=== PATIENT | male | born 1980 | race African-American/Black ===

== ENCOUNTER 2022-07-16 16:42 | Emergency (ER) | payer SELFPAY ==
[2022-07-16 16:54] VITALS: BP 147/84; PULSE 90; RESP 16; TEMP 37.7; O2SAT 99
--- NOTE | 2022-07-16 17:10 | ED.DENTAL ---
HPI - Dental/Oral General Chief complaint: Dental/Oral Stated complaint: Dental Pain,Fever Time Seen by Provider: 07/16/22 17:11 Source: patient and RN notes reviewed Mode of arrival: ambulatory Limitations: no limitations History of Present Illness HPI Narrative: 41-year-old male presents to the [facility] with complaints of dental pain and a fever. Reports loss of tooth today. Pain to the left lower molars. Surrounding erythema. Very poor dentition. Related Data Allergies Allergy/AdvReac Type Severity Reaction Status Date / Time No Known Allergies Allergy Verified 07/16/22 17:14 Review of Systems Review of Systems: All systems reviewed & are unremarkable except as noted in HPI and below Constitutional: Constitutional: Reports no additional constitutional complaints, Denies chills and Denies fever(s) Eyes: Eyes: Reports no additional eye complaints ENT: Reports as per HPI (Dental pain) Cardiovascular: Cardiovascular: Reports no additional cardiovascular complaints Respiratory: Respiratory: Reports no additional respiratory complaints Gastrointestinal: Gastrointestinal: Reports no additional gastrointestinal complaints Musculoskeletal: Musculoskeletal: Reports no additional musculoskeletal complaints Integumentary/Breasts: Skin/Breast: Reports system reviewed and no additional complaints, except as docu Neurologic: Reports system reviewed and no additional complaints, except as documented Psychiatric: Psychiatric: Reports no additional psychiatric complaints Allergic/Immunologic: Allergic/Immunologic: Reports no additional allergic/immunologic complaints PMFSH Comments At the time of my signature, I reviewed and agree with the nursing past medical, surgical, social, and family history. There is no relevant family history pertinent to the patient complaint. Exam Const: General: healthy appearing, no acute distress and alert Nutritional Appearance: well nourished Orientation/consciousness: patient oriented x3 Limitations: no limitations HENMT: Head: normal to inspection Ears: external ears normal General nose exam: Normal external nose present and Normal nares present Teeth and gingiva: abnormal tooth and associated gingiva, caries and poor dentition Throat: posterior oropharynx normal Eyes: General: appearance normal, both eyes and all related structures Pupils: Equal, round and reactive pupils present Neck: Neck: normal visual inspection, no lymphadenopathy and no meningeal signs Chest: Chest palpation & inspection: normal inspection of the chest Resp: Effort & Inspection: normal respiratory effort and no use of accessory muscles Auscultation: clear to auscultation bilaterally, no crackles, no rales, no rhonchi and no wheezes Cardio: Rate: regular rate Rhythm: regular rhythm Back/Spine/Pelvis: Cervical Spine: normal cervical lordosis Thoracic/Lumbar Spine: thoracic and lumbar spine normal to inspection Skin: General skin exam: normal color Rashes: no rashes Wounds: no wounds Neuro: General: patient oriented x3, moves all extremities, no meningeal signs and no focal motor deficits Cranial nerves: Yes Equal, round and reactive pupils present Speech: normal speech Gait exam (Neuro): Normal gait present Extrem: General: normal to inspection, full ROM and capillary refill normal Psych: Appearance: grossly normal and well kempt Mental Status: mental status grossly normal Affect: normal affect Attitude: cooperative Thought content: Yes Normal thought content present Course Course Emergency Course: Discharge instructions reviewed with patient, as well as provided in writing per nursing staff. The instructions also include specific and strict return/GO TO THE ER as well as f/u information. All questions have been answered, and the patient deny any further questions with discharge and discharge plan. Some parts of this dictation were generated by voice recognition software and may contain
== END 2022-07-16 17:19 | disposition home or self-care (01) ==
PROVIDERS: Emergency Provider Nurse Practitioner
DX: K02.9 Dental caries, unspecified (principal); K04.7 Periapical abscess without sinus; I10 Essential (primary) hypertension
CPT/HCPCS: 99203; G0463

== ENCOUNTER 2022-10-16 11:45 | Emergency (ER) | payer OTHER, SELFPAY ==
[2022-10-16 11:52] VITALS: BP 146/94; PULSE 86; RESP 16; TEMP 36.4; O2SAT 99
--- NOTE | 2022-10-16 13:31 | ED.GENADULT ---
HPI - General Adult General Chief complaint: Medical Clearance Stated complaint: flu like sx Time Seen by Provider: 10/16/22 13:30 Source: patient, RN notes reviewed and old records reviewed Mode of arrival: ambulatory Limitations: no limitations History of Present Illness HPI narrative: 40-year-old male presents to [facility] with complaints of being ill starting on the for 3 days with flu-like symptoms of a headache, vomiting, and chills, no fevers reported.. Patient here today for clearance to return to work. Patient denies any fevers today or any nausea or vomiting, states that he went to work and they made him leave till he obtains clearance to return. MD complaint: 3 days of illness with headache, vomiting and chills with no known fevers Onset (ago): day(s) (10/13/2022) Treatments prior to arrival: none Related Data Allergies Allergy/AdvReac Type Severity Reaction Status Date / Time No Known Allergies Allergy Verified 10/16/22 12:35 Review of Systems Review of Systems: CONSTITUTIONAL: Denies present malaise, chills, sweats, or fever. EYES: Denies visual changes, redness, or discharge. ENT: Denies rhinorrhea, congestion, sinus pain, otalgia and sore throat. CARDIOVASCULAR: Denies chest pain, palpitations, or edema. RESPIRATORY: Denies cough.? Denies dyspnea. GASTROINTESTINAL: Denies abdominal pain, nausea, vomiting, diarrhea SKIN: Denies rash or itching. MUSCULOSKELETAL: Denies myalgia. NEUROLOGIC: Denies present headache. states is resolved All systems reviewed & are unremarkable except as noted in HPI and below PMFSH Past Medical History Medical History Hypertension Social History Social History (Updated 10/20/22 @ 11:12 by Cynthia Sims NP) Smoking status: Never smoker Substance use: former Substance use type: former substance user Comments At time of signature, agree with nursing past medical, surgical, social and family history. There is no relevant family history pertinent to the presenting complaint Exam Narrative: GENERAL: Well-appearing, well-nourished, and in no acute distress. HEAD: Normocephalic EYES: PERRLA, conjunctivae clear ENT: Nares clear, turbinates edematous and erythematous, clear discharge. Mucous membranes moist. TM pearly huynh with dull light reflex bilaterally; no tragal tenderness. Oropharynx erythematous without lesions. Tonsils not enlarged and without exudate, no drooling, no hoarseness, no trismus, uvula midline. NECK: Supple. No lymphadenopathy CHEST: Clear to auscultation, breath sounds equal. No wheezing, rhonchi, rales, or stridor. No respiratory distress, speaks in full sentences.SAO2 99% on room air HEART: Regular rate and rhythm. No murmur heard. SKIN: Warm, dry, no rash. NEURO: Alert and oriented x3. PSYCH: Normal mood and affect Course Course Emergency Course: Patient is aware of diagnosis, understands and agrees to treatment plan.? Anticipatory guidance given.? Patient agrees to follow-up as directed and is aware of reasons to seek care at the emergency department. Portions of this record may have been created with voice recognition software Level of Care: Express Care Visit Vital Signs Vital signs: Vital Signs Temperature 36.4 C 10/16/22 11:52 Pulse Rate 86 10/16/22 11:52 Respiratory Rate 16 10/16/22 11:52 Blood Pressure 146/94 H 10/16/22 11:52 Pulse Oximetry 99 10/16/22 11:52 Oxygen Delivery Room Air 10/16/22 11:52 Temperature 36.4 C 10/16/22 11:52 Pulse Rate 86 10/16/22 11:52 Respiratory Rate 16 10/16/22 11:52 Blood Pressure 146/94 H 10/16/22 11:52 Pulse Oximetry 99 10/16/22 11:52 Oxygen Delivery Room Air 10/16/22 11:52 Reviewed Medical Decision Making Differential Diagnosis Differential Diagnosis: URI, influenza, vomiting, headache, medical clearance Medical Records Medical records reviewed: Yes I review
== END 2022-10-16 14:15 | disposition home or self-care (01) ==
PROVIDERS: Emergency Provider Registered Nurse
DX: B34.9 Viral infection, unspecified (principal); Z02.79 Encounter for issue of other medical certificate; Z20.822 Contact with and (suspected) exposure to COVID-19; I10 Essential (primary) hypertension
CPT/HCPCS: 87426; 87804; 99213; C9803; G0463

== ENCOUNTER 2023-03-10 13:22 | Emergency (ER) | payer BC, SELFPAY ==
[2023-03-10 13:33] VITALS: BP 146/93; PULSE 73; RESP 14; TEMP 36.6; O2SAT 100
--- NOTE | 2023-03-10 13:48 | ED.GENADULT ---
HPI - General Adult General Chief complaint: Recheck/Abnormal Lab/Rx Stated complaint: High B/P Time Seen by Provider: 03/10/23 13:48 Source: patient Mode of arrival: ambulatory Limitations: no limitations History of Present Illness HPI narrative: 41-year-old male presents with complaint of high blood pressure today. Reports that he was at his dentist office to have a tooth pulled and they checked his blood pressure twice and told them that it was too high. Patient reports history of hypertension. Has not seen his primary care physician in over year. His last prescription was canceled at [facility] due to not going to his primary care appointment. Patient does not know the names of the medications that he is supposed to be taking. He denies chest pain and shortness of breath. No headaches. All systems reviewed and negative except as noted above. Related Data Allergies Allergy/AdvReac Type Severity Reaction Status Date / Time No Known Allergies Allergy Verified 03/10/23 13:32 Review of Systems Review of Systems: CONSTITUTIONAL: Denies fever, chills, or sweats. EYES: Denies visual changes, redness, or discharge. ENT: Denies rhinorrhea, congestion, sore throat, or otalgia. CARDIOVASCULAR: Denies chest pain, palpitations, or edema. RESPIRATORY: Denies cough or dyspnea. GASTROINTESTINAL: Denies abdominal pain, nausea, vomiting, or diarrhea. GENITOURINARY: Denies dysuria or hematuria. SKIN: Denies rash or itching. MUSCULOSKELETAL: Denies back pain, joint pain, or myalgia. NEUROLOGIC: Denies headache, numbness, or weakness. PSYCHIATRIC: Denies anxiety or depression. All other systems reviewed are negative, except as documented in HPI. PMFSH Past Medical History Medical History Hypertension Social History Social History (Updated 10/20/22 @ 11:12 by Cynthia Sims NP) Smoking status: Never smoker Substance use: former Substance use type: former substance user Comments At time of signature, agree with nursing past medical, surgical, social and family history. There is no relevant family history pertinent to the presenting complaint. Exam Narrative: GENERAL: This is a well-nourished, well-developed patient, in no apparent distress. HEAD: normocephalic, atraumatic. EYES: PERRL. Sclera clear/white. Vision is grossly intact. EARS: External ears normal NOSE: External nose normal NECK: Neck supple, non-tender without lymphadenopathy, masses or thyromegaly. CARDIOVASCULAR: Regular rate and rhythm without murmurs, gallops, or rubs. RESPIRATORY: Clear to auscultation. Breath sounds equal bilaterally. No wheezes, rales, or rhonchi. SKIN: warm, Dry, intact with no suspicious lesions or rash, good texture and turgor. NEURO: awake, alert, and oriented to person, place and time. There were no obvious focal neurologic abnormalities. EXTREMITIES: No joint tenderness, effusion, or edema noted. Course Course Level of Care: Express Care Visit Vital Signs Vital signs: Vital Signs Temperature 36.6 C 03/10/23 13:33 Pulse Rate 73 03/10/23 13:33 Respiratory Rate 14 03/10/23 13:33 Blood Pressure 146/93 H 03/10/23 13:33 Pulse Oximetry 100 03/10/23 13:33 Oxygen Delivery Room Air 03/10/23 13:33 Temperature 36.6 C 03/10/23 13:33 Pulse Rate 73 03/10/23 13:33 Respiratory Rate 14 03/10/23 13:33 Blood Pressure 146/93 H 03/10/23 13:33 Pulse Oximetry 100 03/10/23 13:33 Oxygen Delivery Room Air 03/10/23 13:33 Reviewed Medical Decision Making MDM Narrative Medical decision making narrative: called [facility] pharmacy today to confirm patient's medications. patient last had medications filled December of 2021. He tried to have medications filled January of 2022 but they were canceled by his primary care physician due to not going to an appointment. Patient does not have a current primary care physician. He states that he
== END 2023-03-10 14:03 | disposition home or self-care (01) ==
PROVIDERS: Emergency Provider Nurse Practitioner Family
DX: I10 Essential (primary) hypertension (principal)
CPT/HCPCS: 99211; G0463

== ENCOUNTER 2024-08-27 12:13 | Emergency (ER) | payer MEDICAID, SELFPAY ==
[2024-08-27 12:22] VITALS: BP 176/96; PULSE 78; RESP 18; TEMP 36.6; O2SAT 100
[2024-08-27 12:23] VITALS: BP 176/96; PULSE 78; RESP 18; TEMP 36.6; O2SAT 100
--- NOTE | 2024-08-27 13:11 | ED.GENADULT ---
HPI - General Adult General Chief complaint: Unspecified Stated complaint: High B/P Time Seen by Provider: 08/27/24 13:12 Source: patient, RN notes reviewed and old records reviewed Mode of arrival: ambulatory Limitations: no limitations History of Present Illness HPI narrative: 42-year-old male presents to the [facility] requesting refills on his blood pressure medication. States that he was at work, was not able to past [employer] work physical because of his blood pressure. Patient has not taken his blood pressure medication since February of 2023. Reports that he does have an appointment with a new primary care provider on the . Patient denies any chest pain, shortness of breath, blurry vision, headaches. Related Data Allergies Allergy/AdvReac Type Severity Reaction Status Date / Time No Known Allergies Allergy Verified 08/27/24 12:23 Review of Systems Review of Systems: All systems reviewed & are unremarkable except as noted in HPI and below Constitutional: Constitutional: Reports no additional constitutional complaints Eyes: Eyes: Reports no additional eye complaints ENT: Reports system reviewed and no additional complaints, except as documented Cardiovascular: Cardiovascular: Reports no additional cardiovascular complaints, Denies chest pain and Denies dyspnea Respiratory: Respiratory: Reports no additional respiratory complaints, Denies chest congestion, Denies cough and Denies dyspnea Gastrointestinal: Gastrointestinal: Reports no additional gastrointestinal complaints, Denies abdominal pain, Denies nausea and Denies vomiting Musculoskeletal: Musculoskeletal: Reports no additional musculoskeletal complaints Integumentary/Breasts: Skin/Breast: Reports system reviewed and no additional complaints, except as docu Neurologic: Reports system reviewed and no additional complaints, except as documented Psychiatric: Psychiatric: Reports no additional psychiatric complaints Allergic/Immunologic: Allergic/Immunologic: Reports no additional allergic/immunologic complaints [facility] Past Medical History Medical History Hypertension Social History Social History Smoking status: Never smoker Substance use: former Substance use type: former substance user Comments At the time of my signature, I reviewed and agree with the nursing past medical, surgical, social, and family history. There is no relevant family history pertinent to the patient complaint. Exam Const: General: cooperative, healthy appearing, comfortable, no acute distress, well developed, alert and well nourished Nutritional Appearance: well nourished Orientation/consciousness: patient oriented x3 Limitations: no limitations HENMT: Head: normal to inspection Ears: hearing grossly normal bilaterally and external ears normal Face/Nose/Sinus: Normal external nose present, normal facial exam and face symmetric Face and sinus: normal facial exam and face symmetric Eyes: General: appearance normal, both eyes and all related structures Alignment and Position: alignment normal Periorbital: periorbital findings normal Neck: Neck: normal visual inspection, full ROM, no lymphadenopathy and no meningeal signs Chest: Chest palpation & inspection: normal inspection of the chest Resp: Effort & Inspection: normal respiratory effort and able to speak in complete sentences Cardio: Rate: regular rate Skin: General skin exam: normal color and no rashes or lesions noted Lesions: no lesions Rashes: no rashes Trauma: no lacerations or abrasions Wounds: no wounds Neuro: General: patient oriented x3, gait normal, tone normal, moves all extremities and no meningeal signs Cognition (Neuro): normal cognition Speech: normal speech Gait exam (Neuro): Normal gait present Extrem: General: normal to inspection, full ROM, capillary refill normal and normal gait Ps
== END 2024-08-27 13:25 | disposition home or self-care (01) ==
PROVIDERS: Emergency Provider Nurse Practitioner
DX: I10 Essential (primary) hypertension (principal)
CPT/HCPCS: 99211; G0463

== ENCOUNTER 2024-11-03 17:34 | Emergency (ER) | payer OTHER, SELFPAY ==
[2024-11-03 17:45] VITALS: BP 135/90; PULSE 82; RESP 16; TEMP 36.4; O2SAT 99
--- NOTE | 2024-11-03 17:47 | ED_ITS ---
HPI - Dental/Oral General Chief complaint: Dental/Oral Stated complaint: right side tooth pain Time Seen by Provider: 11/03/24 17:47 Source: patient Mode of arrival: ambulatory Limitations: no limitations History of Present Illness HPI Narrative: 42 yo M presents with with R lower dental pain for 1 days. Has dentist but has not made appt. afebrile. All systems reviewed and negative except as noted above. Related Data Allergies Allergy/AdvReac Type Severity Reaction Status Date / Time No Known Allergies Allergy Verified 11/03/24 17:46 Review of Systems Review of Systems: CONSTITUTIONAL: Denies fever, chills, or sweats. EYES: Denies visual changes, redness, or discharge. ENT: Denies rhinorrhea, congestion, sore throat, or otalgia. Reports right lower dental pain. CARDIOVASCULAR: Denies chest pain, palpitations, or edema. RESPIRATORY: Denies cough or dyspnea. GASTROINTESTINAL: Denies abdominal pain, nausea, vomiting, or diarrhea. GENITOURINARY: Denies dysuria or hematuria. SKIN: Denies rash or itching. MUSCULOSKELETAL: Denies back pain, joint pain, or myalgia. NEUROLOGIC: Denies headache, numbness, or weakness. PSYCHIATRIC: Denies anxiety or depression. All other systems reviewed are negative, except as documented in HPI. [facility] Past Medical History Medical History Hypertension Social History Social History Smoking status: Never smoker Substance use: former Substance use type: former substance user Comments At time of signature, agree with nursing past medical, surgical, social and family history. There is no relevant family history pertinent to the presenting complaint. Exam Narrative: GENERAL: This is a well-nourished, well-developed patient, in no apparent distress. HEAD: normocephalic, atraumatic. EYES: PERRL. Sclera clear/white. Vision is grossly intact. EARS: External ears normal NOSE: External nose normal MOUTH: tooth #32 decayed and broken. no erythema or fluctuance concerning for abscess NECK: Neck supple, non-tender without lymphadenopathy, masses or thyromegaly. CARDIOVASCULAR: Regular rate and rhythm without murmurs, gallops, or rubs. RESPIRATORY: Clear to auscultation. Breath sounds equal bilaterally. No wheezes, rales, or rhonchi. SKIN: warm, Dry, intact with no suspicious lesions or rash, good texture and turgor. NEURO: awake, alert, and oriented to person, place and time. There were no obvious focal neurologic abnormalities. EXTREMITIES: No joint tenderness, effusion, or edema noted. Course Course Level of Care: Express Care Visit Vital Signs Vital signs: Vital Signs Temperature 36.4 C 11/03/24 17:45 Pulse Rate 82 11/03/24 17:45 Respiratory Rate 16 11/03/24 17:45 Blood Pressure 135/90 11/03/24 17:45 Pulse Oximetry 99 11/03/24 17:45 Oxygen Delivery Room Air 11/03/24 17:45 Temperature 36.4 C 11/03/24 17:45 Pulse Rate 82 11/03/24 17:45 Respiratory Rate 16 11/03/24 17:45 Blood Pressure 135/90 11/03/24 17:45 Pulse Oximetry 99 11/03/24 17:45 Oxygen Delivery Room Air 11/03/24 17:45 Reviewed MDM - Dental/Oral MDM Narrative Medical decision making narrative: Patient is aware of diagnosis, understands and agrees to treatment plan. Anticipatory guidance given. Patient agrees to follow-up as directed and is aware of reasons to seek care at the emergency department. Portions of this record may have been created with voice recognition software Differential Diagnosis Differential diagnosis: Likely dental caries, toothache, dental abscess and fracture of tooth Discharge Plan Discharge Clinical Impression: Pain, dental Patient Disposition: Home, Self-Care Condition: Stable Instructions: Antibiotic Form, Toothache (ED) Additional Instructions: take antibiotic as prescribed until gone. Take ibuprofen every 8 hours as needed for pain. Follow-up with dentist at next available appointment. Patient Language: German Prescriptions: New ibuprofen 800 mg tablet 800 mg PO TID PRN (Reason: pain) Qty: 30 0RF amoxicillin 875 mg tablet 875 mg PO Q12H 10 Days Qty: 20 0RF No Action amlodipine 5 mg tablet 5 mg PO DAILY 30 Days Qty: 30 0RF losartan 100 mg tablet 100 mg PO DAILY 30 Days Qty: 30 0RF Follow-up/Referrals: Heriberto,Irma Iyer NP [Primary Care Provider] - Stand Alone Forms: Work/School Release IP Time of Disposition: 17:51
[2024-11-03] MEDS: IBUPROFEN 400 MG TABLET 800 MG PO (17:53)
== END 2024-11-03 17:59 | disposition home or self-care (01) ==
PROVIDERS: Emergency Provider Nurse Practitioner Family; PCP Nurse Practitioner Family
DX: K08.89 Other specified disorders of teeth and supporting structures (principal); I10 Essential (primary) hypertension
CPT/HCPCS: 99213; A9270; G0463

== ENCOUNTER 2025-02-07 12:45 | Outpatient (CLI) | payer OTHER, SELFPAY ==
--- OUTSIDE RECORDS SUMMARY | 2025-02-07 14:30 | XMS_ITS | Clinical Summary ---
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 This disclosure is being madepursuant to the Care Everywhere program and may not contain all information available regarding this patient. Last updated [employer] Allergies No known active allergies Medications * Be aware that medications may not be up to date on this document. Alwaysverify current medications with the patient. Medication Sig Dispensed Refills Start Date End Date Status traMADol (ULTRAM) 50 MG tablet Take 1 Tab by mouth every 6 hours as needed for Pain 20 Tab 0 09/22/2015 Active Social History Tobacco Use Types Packs/Day Years Used Date Smoking Tobacco: Every Day Cigarettes Alcohol Use Standard Drinks/Week Comments No 0 (1 standard drink = 0.6 oz pur e alcohol) Sex and Gender Information Value Date Recorded Sex Assigned at Not on file Gender Identity Not on file Sexual Orientation Not on file Last Filed Vital Signs Vital Sign Reading Time Taken Comments Blood Pressure 145/90 08/04/2016 7:35 AM CDT Pulse 78 08/04/2016 7:35 AM CDT Temperature 36.9 C (98.4 F) 08/04/2016 7:35 AM CDT Respiratory Rate 16 08/04/2016 7:35 AM CDT Oxygen Saturation 98% 08/04/2016 7:35 AM CDT Inhaled Oxygen Concentration - - Weight 77.1 kg (170 lb) 08/04/2016 7:35 AM CDT Height 167.6 cm (5' 5.98 ) 08/04/2016 7:35 AM CD T Body Mass Index 27.45 08/04/2016 7:35 AM CDT Plan of Treatment Health Maintenance Due Date Last Done Comments LIPID TESTING 11/16/1982 HIV SCREENING 11/16/1997 HEPATITIS C SCREENING 11/11/2000 DTAP/TDAP/TD VACCINES (1 - Tdap) 11/16/2001 HEPATITIS B VACCINE (1 of 3 - 19+ 3-dose series) 11/16/2001 COVID-19 VACCINE ( - 2023-2 5 season) 2024 INFLUENZA VACCINE (#1) 2024 DEPRESSION SCREENING 11/17/2024 ZOSTER VACCINE (1 of 2) 11/16/2032 HIB VACCINE Aged Out No longer eligi ble based on patient's age to complete this topic HPV VACCINE Aged Out No longer eligi ble based on patient's age to complete this topic MENINGOCOCCAL (Group B) VACC INE SHARED DECISION-MAKING Aged Out No longer eligibl e based on patient's age to complete this topic MENINGOCOCCAL GROUPS A/C/Y/W VACCINE Aged Out No longer eligible b ased on patient's age to complete this topic PNEUMOCOCCAL VACCINE Aged Out No long er eligible based on patient's age to complete this topic
--- OUTSIDE RECORDS SUMMARY | 2025-02-07 14:30 | XMS_ITS | CONTINUITY OF CARE DOCUMENT ---
Author Name eros cooney Address Unknown Organization [facility] Office Address [address] [facility] [address] [place] [address] Phone [phone] Care Team Providers Care Supplier Quality Engineer Name Role Phone Dandre GOLDEN, Jerod Dwyer Unavailable Heriberto SEVILLA, Irma Unavailable [phone] PROBLEMS Condition Status Date Provider Notes Tobacco abuse active Jerod Amos MD Hypertension active Jerod Amos MD G E R D active Jerod Amos MD Cardiovascular Condition Screening active S gertrude Amos MD ENCOUNTERS Date Type Provider Location Encounter Diag nosis - In-person encounter Office Visit Jerod Amos MD [facility] Tobacco abuseHypertensionG E R DCardiovascular Condition Screening VITAL SIGNS Date Observation Value Provider Body Mass Index (Ratio) 31.15 kg/m2 Ren Amos MD blood pressure, diastolic 82 mm[Hg] Chioma Marquez blood pressure, systolic 128 mm[Hg] Courtney Marquez oxygen saturation, oximetry 99 % Jo Marquez pulse rate 92 /min Jo Marquez respiratory rate E&M 12 /min Jo Marquez weight E&M 193 [lb_av] Jo Marquez height E&M 66 [in_i] Jo Marquez blood pressure, cuff size regular An alex Marquez ALLERGIES No Known Drug Allergies HISTORY OF MEDICATION USE Medication Status Instructions Dates Provider Indications Com ments losartan 100 mg tablet active TAKE 1 TA BLET BY MOUTH EVERY DAY Jo Marquez amlodipine 10 mg tablet active Take 1 t ablet by mouth once a day Jo Marquez omeprazole active Jo Marquez hydrochlorothiazide active TAKE 1 CAPSU LE BY MOUTH EVERY DAY Jo Marquez INSURANCE PROVIDERS Payer name Policy type / Coverage type Luis Armando red green party ID [place] [employer] Medicaid [id number] ADVANCE DIRECTIVES Name Date DISCUSSED - NO DECISION MADE TREATMENT PLAN Date Name Performer Cardiology:Unknown l ipids r ecommend blood work Jerod Amos MD Cardiology:on multip le BP med Rx. Bp well controlled in office. Dietary Na intake is watched W ill arrange for echo to be done to evaluate for LVH His updated medication list for this problem includes: Losartan 100 Mg Tablet (Losartan) ..... Take 1 tablet by mouth every day Amlodipine 10 Mg Tablet (Amlodipine) ..... Take 1 tablet by mouth once a day Jerod Amos MD Cardiology:The Patie nt was reencouraged to stop smoking. D eclines cessation aids Jerod Amos MD Date Name TSH, free T4, total T3 HEMOGLOBIN A1c LIPID PANEL COMPREHENSIVE METABO LIC PANEL, W/EGFR EKG Complete Echo
--- OUTSIDE RECORDS SUMMARY | 2025-02-07 14:30 | XMS_ITS | Referral Summary ---
Author Organization [facility] Address [address] [place] [address] Care Team Providers Care Asphalt Mixer Name Role Phone Irma Louis NP Primary Care Provider Encounters Date Type Department Care Team Description 12/01/2024 10:45 AM MANAGER MEDICAL DEVICE Lab [facility] Lab [address] [place] [address] 11/14/2024 6:54 PM MANAGER MEDICAL DEVICE - 11/14/2024 10:24 PM [facility] Emergency [address] [address] Adalid Edwards MD Hyperglycemia due to diabetes mellitus (HCC) (Primary Dx) Discharge Disposition: Discharge to home or self care from Last 3 Months Allergies No known active allergies Medications metFORMIN (GLUCOPHAGE) 500 mg tablet Take 1 tablet (500 mg total) by mouth 2 (two) times a day with meals 60 tablet 11/14/2024 Active Social History Tobacco Use Types Packs/Day Years Used Date Smoking Tobacco: Every Day Cigarettes Personal Safety Answer Date Recorded Have you ever been in or are you currently in a harmful physical or emotional relationship or is someone making you feel afraid or unsafe? Denies 11/14/2024 Sex and Gender Information Value Date Recorded Sex Assigned at Not on file Legal Sex Male 7:50 PM MANAGER MEDICAL DEVICE Gender Identity Not on file Sexual Orientation Not on file Last Filed Vital Signs Vital Sign Reading Time Taken Comments Blood Pressure 114/82 11/14/2024 10:00 PM MANAGER MEDICAL DEVICE Pulse 88 11/14/2024 10:15 PM MANAGER MEDICAL DEVICE Temperature 36.9 C (98.4 F) 11/14/2024 4:43 PM MANAGER MEDICAL DEVICE Respiratory Rate 18 11/14/2024 6:50 PM MANAGER MEDICAL DEVICE Oxygen Saturation 100% 11/14/2024 10:15 PM MANAGER MEDICAL DEVICE Inhaled Oxygen Concentration - - Weight 81.6 kg (180 lb) 11/14/2024 4:43 PM MANAGER MEDICAL DEVICE Height 167.6 cm (5' 6 ) 08/17/2024 11:40 AM CDT Body Mass Index 29.05 08/17/2024 11:40 AM CDT Plan of Treatment Not on file Procedures Procedure Name Priority Date/Time Associated Diagnosis Comments HEMOGLOBIN A1C Routine 12/01/2024 11:05 AM MANAGER MEDICAL DEVICE POCT GLUCOSE DEVICE Routine 11/14/2024 1 0:11 PM MANAGER MEDICAL DEVICE XR CHEST 1 VIEW ED 11/14/2024 9:18 PM MANAGER MEDICAL DEVICE POCT GLUCOSE DEVICE Routine 11/14/2024 9 :16 PM MANAGER MEDICAL DEVICE POC BLOOD GAS AND CHEMISTRIES, VENOUS Routine 11/14/2024 8:43 PM MANAGER MEDICAL DEVICE POCT GLUCOSE DEVICE Routine 11/14/2024 7 :17 PM MANAGER MEDICAL DEVICE POCT GLUCOSE DEVICE Routine 11/14/2024 5 :14 PM MANAGER MEDICAL DEVICE HEMOGLOBIN A1C STAT 11/14/2024 5:07 PM MANAGER MEDICAL DEVICE MANUAL DIFFERENTIAL STAT 11/14/2024 5 :07 PM MANAGER MEDICAL DEVICE EGFR STAT 11/14/2024 5:07 PM MANAGER MEDICAL DEVICE BETA-HYDROXYBUTYRATE STAT 11/14/2024 5:07 PM MANAGER MEDICAL DEVICE COMPREHENSIVE METABOLIC PANEL STAT 11/14/2024 5:07 PM MANAGER MEDICAL DEVICE CBC WITH AUTO DIFFERENTIAL STAT 11/14/2024 5:07 PM MANAGER MEDICAL DEVICE URINALYSIS AND REFLEX TO MICROSCOPIC AND CULTURE STAT 11/14/2024 5:07 PM MANAGER MEDICAL DEVICE ECG 12-LEAD STAT 11/14/2024 5:04 PM MANAGER MEDICAL DEVICE from Last 3 Months Results * (ABNORMAL) Hemoglobin A1c (12/01/2024 11:05 AM MANAGER MEDICAL DEVICE) Hgb A1C 13.1(H) 4.0 - 5.6 % Comment:Testing performed by : [address] [address] Estimated Average Glucose 329 mg/dL [facility] Comment: The ADA recommends reporting an estimated Average Glucose (eAG) with all Hemoglobin A1c results using the equation derived from a study of 507 normal and diabetic adults. Minority populations were underrepresented and children were not included. (Diabetes Care 31:8446-7108, 2008). The eAG is not equivalent to a fasting glucose. Testing performed by: [address] [address] Blood 12/01/2024 11:0 5 AM MANAGER MEDICAL DEVICE 12/01/2024 11:32 AM MANAGER MEDICAL DEVICE us Irma Louis DISC INSPECTOR LAB BLOOD ORDERABLES Final R esult Performing Organization Address City/[facility]/ZIP Co de Phone Number [facility] [address] [place] [address] * (ABNORMAL) POCT glucose (11/14/2024 10:11 PM MANAGER MEDICAL DEVICE) Pathologist [facility] Glucose, POC 352(H) 70 - 199 mg/dL Blood 11/14/2024 10:1 1 PM MANAGER MEDICAL DEVICE 11/14/2024 10:11 PM MANAGER MEDICAL DEVICE us Notinfile Unknown LAB POCT ORDERABLES - DEVICE F inal Result Performing Organization Address City/[facility] Co de Phone Number [facility] [address] [place] [address] * XR Chest 1 Vw Portable (11/14/2024 9:18 PM MANAGER MEDICAL DEVICE) Anatomical Region Laterality Modality Body, Chest N/A Computed Radiogr aphy 11/14/2024 10:3 6 PM MANAGER MEDICAL DEVICE Narrative 11/14/2024 10:36 PM MANAGER MEDICAL DEVICE EXAM DESCRIPTION: XR CHEST 1 VIEW REASON FOR STUDY: hyperglycemia Pt presents with feeling depressed and low energy, freq urination x 3 days. TECHNIQUE: Single radiographic view of the chest. COMPARISON: None. FINDINGS: LUNGS/PLEURA: Lungs are hypoventilatory with crowding of the vascular markings and are otherwise clear. HEART/MEDIASTINUM: Cardiac silhouette is normal. Remaining mediastinal silhouettes are unremarkable. HARDWARE/LINES/TUBES: None. BONES: No acute findings. IMPRESSION: Hypoventilatory chest. THIS IS AN ELECTRONICALLY VERIFIED FINAL REPORT 11/14/2024 10:36 PM - Electronically signed by Annemarie Yin M.D. SN T: Report ID: [id number] Reading Location: [id number] Procedure Note Annemarie Yin MD - 11/14/2024 EXAM DESCRIPTION: XR CHEST 1 VIEW REASON FOR STUDY: hyperglycemia Pt presents with feeling depressed and low energy, freq urination x 3days. TECHNIQUE: Single radiographic view of the chest. COMPARISON: None. FINDINGS: LUNGS/PLEURA: Lungs are hypoventilatory with crowding of the vascular markings and are otherwise clear. HEART/MEDIASTINUM: Cardiac silhouette is normal. Remaining mediastinal silhouettes are unremarkable. HARDWARE/LINES/TUBES: None. BONES: No acute findings. IMPRESSION: Hypoventilatory chest. THIS IS AN ELECTRONICALLY VERIFIED FINAL REPORT 11/14/2024 10:36 PM - Electronically signed by Annemarie Yin M.D. SN T: Report ID: [id number] Reading Location: [id number] Ofelia Grimes NP IMG XR PROCEDURES Final Result * (ABNORMAL) POCT glucose (11/14/2024 9:16 PM MANAGER MEDICAL DEVICE) Glucose, POC 469(C) 70 - 199 mg/dL Glucose comment 1 Glu2: CERNER MH Blood 11/14/2024 9:16 PM MANAGER MEDICAL DEVICE 11/14/2024 9:16 PM MANAGER MEDICAL DEVICE us Notinfile Unknown LAB POCT ORDERABLES - DEVICE F inal Result [facility] [address] [facility] [place] [address] * (ABNORMAL) POC Blood Gas and Chemistries, Venous - (11/14/2024 8:43 PM MANAGER MEDICAL DEVICE) Pathologist [facility] pH,matthew POC 7.36 7.32 - 7.43 pCO2, matthew POC 52(H) 40 - 50 mmHg [facility] pO2,matthew POC 32 mmHg [facility] Comment: Interpretive Data No reference range established. Current interpretive data was last revised 2020. HCO3, matthew (Calc) POC 29 20 - 30 mmol/L [facility] Base excess, matthew POC 3 mmol/L [facility] Comment: Interpretive Data No reference range established. Current interpretive data was last revised 2020. Oxy Hgb, matthew POC 51.2(L) 90.0 - 95.0 % [facility] Met Hgb, matthew POC 0.3 0.0 - 1.9 % [facility] Carboxy Hgb, matthew POC 6.5(H) 0.0 - 2.9 % [facility] Hemoglobin, matthew POC 14.0 13.0 - 17.5 g/dL [facility] Sodium, matthew POC 131(L) 135 - 145 mmol/L [facility] Potassium, matthew POC 3.8 3.3 - 4.9 mmol/L [facility] Comment: Interpretive Data This method is not able to assess for hemolysis, which may falsely increase potassium concentrations. If further testing is needed to evaluate this result, consider in-laboratory plasma potassium. Current Interpretive Data was last revised on 2022. Glucose, matthew POC 564(C) 70 - 199 mg/dL [facility] Ionized Calcium, matthew POC 4.81 4.50 - 5.10 mg/dL [facility] Lactate, matthew POC 1.3 0.7 - 2.0 mmol/L [facility] Blood 11/14/2024 8:43 PM MANAGER MEDICAL DEVICE 11/14/2024 8:43 PM MANAGER MEDICAL DEVICE us Notinfile Unknown LAB POCT ORDERABLES - DEVICE F inal Result Performing Organization Address [facility] Co de Phone Number [facility] [address] [employer] [place] [address] * (ABNORMAL) POCT glucose (11/14/2024 7:17 PM MANAGER MEDICAL DEVICE) Glucose, POC >600(C) 70 - 199 mg/dL Glucose comment 1 Glu2: [facility] Blood 11/14/2024 7:17 PM MANAGER MEDICAL DEVICE 11/14/2024 7:17 PM MANAGER MEDICAL DEVICE Notinfile Unknown LAB POCT ORDERABLES - DEVICE F inal Result Performing Organization Address [facility] Co de Phone Number GLORIA[address] [employer] [place] [address] * (ABNORMAL) POCT glucose (11/14/2024 5:14 PM MANAGER MEDICAL DEVICE) Pathologist [facility] Glucose, POC >600(C) 70 - 199 mg/dL Glucose comment 1 RN/MD Notified [facility] Blood 11/14/2024 5:14 PM MANAGER MEDICAL DEVICE 11/14/2024 5:14 PM MANAGER MEDICAL DEVICE Notinfile Unknown LAB POCT ORDERABLES - DEVICE F inal Result Performing Organization Address [facility] Co de Phone Number GLORIA[address] [employer] [place] [address] * eGFR (11/14/2024 5:07 PM MANAGER MEDICAL DEVICE) eGFR 88 >=60 mL/min/1. 73 m2 Comment: Interpretive Data Reference Interval Normal >/= 90 mL/min/1.73m2 Mildly decreased* 60 - 89 mL/min/1.73m2 Mildly to moderately decreased 45 - 59 mL/min/1.73m2 Moderately to severely decreased 30 - 44 mL/min/1.73m2 Severely decreased 15 - 29 mL/min/1.73m2 Kidney Failure < 15 mL/min/1.73m2 *Relative to young adult level Estimated glomerular filtration rate is determined by the 2020 CKD-EPI equation recommended by the National Kidney Foundation (A Unifying Approach to GFR Estimation: Recommendations of the NKF-ASK Task Force on Reassessing the Inclusion of Race in Diagnosing Kidney Disease, JASN 2020). The CKD-EPI equation should not be used for patients with unstable renal function and has not been validated in children and those over 70. Current interpretive data was last reviewed 2021. Blood 11/14/2024 5:07 PM MANAGER MEDICAL DEVICE 11/14/2024 5:14 PM MANAGER MEDICAL DEVICE Ofelia Grimes NP LAB BLOOD ORDERABLES Final Resul t Performing Organization Address [facility] Co de Phone Number [address] [place] [address] * Beta-hydroxybutyrate (11/14/2024 5:07 PM MANAGER MEDICAL DEVICE) Beta-Hydroxybut yrate 0.1 <=0.5 mmol/L Blood 11/14/2024 5:07 PM MANAGER MEDICAL DEVICE 11/14/2024 5:43 PM MANAGER MEDICAL DEVICE Iliana KERR LAB BLOOD ORDERABLES Final Resul t Performing Organization Address [facility] Co de Phone Number [address] [place] [address] * (ABNORMAL) Urinalysis reflex to microscopic and culture Urine (11/14/2024 5:07 PM MANAGER MEDICAL DEVICE) Color, ur Yellow Yellow Clarity, ur Clear Clear [facility] Specific gravity, ur 1.028 1.003 - 1.030 [facility] pH, urine 6.0 [facility] Comment: Interpretive Data U rine pH is affected by diet, medications, systemic acid-base disturbances, and renal tubular function. pH may affect urinary stone formation. For example, urine pH below 6.0 may help reduce the tendency for calcium phosphate stones and pH greater than 6.0 may reduce the tendency for uric acid stone formation. Source: [facility] Current Interpretive Data was last revised on 2017 Protein, ur ql Negative Negative [facility] Glucose, ur ql 4+(A) Negative [facility] Ketones, ur Negative Negative [facility] Bilirubin, ur Negative Negative [facility] Blood, ur Negative Negative [facility] Urobilinogen, ur <2.0 <2.0 mg/dL [facility] Nitrite, ur Negative Negative [facility] Leukocyte esterase, ur Negative Negative [facility] UA reflex comment Reflex conditions for microscopic UA and culture not met. [facility] Urine 11/14/2024 5:07 PM MANAGER MEDICAL DEVICE 11/14/2024 5:14 PM MANAGER MEDICAL DEVICE us Ofelia Grimes NP LAB MICROBIOLOGY - GENERAL ORDER [place] Final Result [facility] [address] [facility] [place] [address] * (ABNORMAL) CBC with auto differential (11/14/2024 5:07 PM MANAGER MEDICAL DEVICE) WBC 11.5(H) 3.8 - 9.9 K/cumm Hgb 15.1 13.0 - 17.5 g/dL [facility] Hct 42.1 38.9 - 50.3 % [facility] Plt 162 150 - 400 K/cumm [facility] MPV 11.3 9.1 - 12.3 fL [facility] RBC 4.98 4.30 - 5.80 M/cumm [facility] MCV 84.5 81.3 - 96.4 fL [facility] MCH 30.3 27.1 - 33.3 pg [facility] MCHC 35.9(H) 32.3 - 35.7 g/dL [facility] RDW CV 11.9 11.1 - 14.9 % [facility] RDW SD 35.9 35.7 - 48.1 fL [facility] NRBC abs 0.00 0.00 - 0.01 K/cumm [facility] Blood 11/14/2024 5:07 PM MANAGER MEDICAL DEVICE 11/14/2024 5:14 PM MANAGER MEDICAL DEVICE Ofelia Grimes DISC INSPECTOR LAB BLOOD ORDERABLES Edited Resu lt - Final [facility] [address] [place] [address] * (ABNORMAL) Manual Differential (11/14/2024 5:07 PM MANAGER MEDICAL DEVICE) Differential Manual Cells Counted 100 [facility] Neutrophil abs 5.0 1.5 - 6.5 K/cumm [facility] Lymphocyte abs 5.6(H) 0.8 - 3.3 K/cumm [facility] Monocyte abs 0.8 0.2 - 0.8 K/cumm [facility] Eosinophil abs 0.1 0.0 - 0.5 K/cumm [facility] Neutrophil pct 43.0 % [facility] Comment: Interpretive Data Percent cell count reference ranges are not reported, since discordance with absolute values may lead to misinterpretation of CBC data. Current Interpretive Data was last revised on 2018. Lymphocyte pct 49.0 % [facility] Comment: Interpretive Data Percent cell count reference ranges are not reported, since discordance with absolute values may lead to misinterpretation of CBC data. Current Interpretive Data was last revised on 2018. Monocyte pct 7.0 % [facility] Comment: Interpretive Data Percent cell count reference ranges are not reported, since discordance with absolute values may lead to misinterpretation of CBC data. Current Interpretive Data was last revised on 2018. Eosinophil pct 1.0 % [facility] Comment: Interpretive Data Percent cell count reference ranges are not reported, since discordance with absolute values may lead to misinterpretation of CBC data. Current Interpretive Data was last revised on 2018. RBC morphology Consistent with RBC Indicies [facility] Platelet estimate Automated Count Confirmed [facility] Blood 11/14/2024 5:07 PM MANAGER MEDICAL DEVICE 11/14/2024 5:14 PM MANAGER MEDICAL DEVICE Ofelia Grimes NP LAB BLOOD ORDERABLES Final Resul t [address] [place] [address] * (ABNORMAL) Hemoglobin A1c (11/14/2024 5:07 PM MANAGER MEDICAL DEVICE) [facility] Hgb A1C 11.1(H) 4.0 - 5.6 % Estimated Average Glucose 272 mg/dL [facility] Comment: The ADA recommends reporting an estimated Average Glucose (eAG) with all Hemoglobin A1c results using the equation derived from a study of 507 normal and diabetic adults. Minority populations were underrepresented and children were not included. (Diabetes Care 31:4698-0458, 2008). The eAG is not equivalent to a fasting glucose. Blood 11/14/2024 5:07 PM MANAGER MEDICAL DEVICE 11/14/2024 5:14 PM MANAGER MEDICAL DEVICE us Iliana KERR LAB BLOOD ORDERABLES Final Resul t [address] [address] * (ABNORMAL) Comprehensive metabolic panel (11/14/2024 5:07 PM MANAGER MEDICAL DEVICE) [facility] Sodium 131(L) 135 - 145 mmol/L Potassium, pl 3.6 3.3 - 4.9 mmol/L [facility] Chloride 88(L) 97 - 110 mmol/L [facility] CO2 29 22 - 32 mmol/L [facility] Anion gap 14 2 - 15 mmol/L [facility] BUN 21 6 - 25 mg/dL [facility] Creatinine 1.08 0.80 - 1.30 mg/dL [facility] Glucose 786(C) 70 - 199 mg/dL [facility] Comment: Critical Result called to and read back by [email or web address], DATE: 2024-11-14 17:59:19 BY: [email or web address] Interpretive Data Fasting glucose >/= 126 mg/dl is diagnostic for diabetes. Fasting is defined as no caloric intake for at least 8 hours. Fasting glucose between 100 mg/dl to 125 mg/dl is diagnostic of prediabetes. In a patient with classic symptoms of hyperglycemia or hyperglycemic crisis, a random glucose >/= 200 mg/dl is diagnostic for diabetes. In the absence of unequivocal hyperglycemia, results should be confirmed by repeat testing. The classification and Diagnosis of Diabetes Diabetes Care 2021; 46: S19-S40. Current interpretive data was last revised 2022. Calcium 10.2 8.5 - 10.3 mg/dL [facility] Bilirubin, total 0.5 0.1 - 1.2 mg/dL [facility] Protein, pl 8.6(H) 6.5 - 8.5 g/dL [facility] Albumin 4.4 3.5 - 5.0 g/dL [facility] Alk phos 119 40 - 130 Units/L [facility] ALT 210(H) 7 - 55 Units/L [facility] AST 123(H) 10 - 50 Units/L [facility] Blood 11/14/2024 5:07 PM MANAGER MEDICAL DEVICE 11/14/2024 5:14 PM MANAGER MEDICAL DEVICE Ofelia Grimes NP LAB BLOOD ORDERABLES Final Resul t Performing Organization Address City/[facility] Co de Phone Number [facility] [address] [facility] [place] [address] * ECG 12 lead (11/14/2024 5:04 PM MANAGER MEDICAL DEVICE) Pathologist [facility] Ventricular Rate EKG/Min 94 BPM [facility] Atrial Rate 94 BPM [facility] GA-Interval (MSEC) 144 ms [facility] QRS-Interval (MSEC) 84 ms [facility] QT-Interval (MSEC) 346 ms [facility] QTc 432 ms [facility] P [place] 52 degrees [facility] R [place] 8 degrees [facility] T [place] 38 degrees [facility] Diagnosis Sinus rhythm with frequent Premature ventricular complexes Otherwise normal ECG When compared with ECG of 17-AUG-2024 11:59, No significant change was found Confirmed by HELEN VALLE M.D. ([id number]) on 11/15/2024 11:52:00 PM [facility] 11/14/2024 5:04 PM MANAGER MEDICAL DEVICE 11/15/2024 11:52 PM MANAGER MEDICAL DEVICE Ofelia Grimes NP ECG ORDERABLES Final Result Performing Organization Address City/[facility] Co de Phone Number [facility] from Last 3 Months Insurance ANTH ACCESS [employer] [facility] ANTH ACCESS [facility] Care Teams Asphalt Mixer Relationship Specialty Start Date End Date Irma Louis NP [address] [id number] PCP - General Family Medicine 11/14/24
--- OUTSIDE RECORDS SUMMARY | 2025-02-07 14:30 | XMS_ITS | Data Portability ---
Author Organization [employer], Main Office Address [address] [place] [address] Assessment No assessment recorded. Plan of Treatment Reminders Order Date Submit Date Provider Last Modified By Organization Details Last Modified Time Details Appointments None recorded. Lab HbA1c (hemoglobin A1c), blood 2024 [email or web address] [place] [address] Outpatient Lab, [address] [place] [address], [address], 5 09:56:22 microalbumi n, urine - Sent to [facility] [email or web address] [place] [address] Outpatient Lab, [address] [place] [address], [address], 5 12:44:44 Referral diabetic ophthalmolo gy referral - Please call patient to schedule an appointment . Thank you. 2024 025 vane Chen Professional Nadine Prabhakar, [place], [address], 5 08:54:10 Procedures None recorded. Surgeries None recorded. Imaging None recorded. Medication Orders None recorded. Patient TargetsNo targets recorded. Patient InstructionsNo instructions recorded. Reason for Referral Diabetic Ophthalmology Refer ral for Uncontrolled type 2 diabetes mellitus Please call patient to schedule an appointment. Thank you. Referring Physician: Irma Louis, Family Medicine, Encounter Date: 11/23/2024 Results Created Date Observation Date Name Description Value Unit Range Abnormal Flag Note LastModifiedBy Organization Detail LastModifiedTime 11/05/20 24 11/03/2024 , [facility] ardio gram No observ ation record ed. [email or web address] [facility] [address], [place], [address], 11/06/2024 10:36:12 Result Notes None recorded. Problems Name Problem SNOMED Code Status Onset Date Resolution Date Notes Provider Name and Address Organization Details Recorded Time Essential hypertension 92184594 Active 2022 MELITON Rojas [address], [address], [place], [address], [employer] 3 08:22:49 Near syncope 216665264 Active 2022 MELITON Rojas [address], [address], [place], [address], [employer] 3 08:24:52 Chronic hepatitis C 137937576 Active 2022 MELITON Rojas [address], [place], [address], [employer] 3 08:30:29 Gastroesophage al reflux disease without esophagitis 433727260 Active 2023 CHRISTIANO Crespo [address], [address], [place], [address], [employer] 4 12:02:39 Smoker 85108393 Active 2023 CHRISTIANO Crespo [address], [place], [address], [employer] 4 23:35:59 Uncontrolled type 2 diabetes mellitus 381497101 Active 2024 CHRISTIANO Crespo [address], [address], [place], [address], [employer] 5 12:06:48 Nausea and vomiting 32791300 Active 2024 CHRISTIANO Crespo [address], [place], [address], [employer] 5 11:02:03 Problem Notes None recorded. Procedures Surgical History None recorded. Imaging Results Imaging Date Name Status LastModified by Organization Details LastModified Time 11/03/2024 US, echocardiogram completed [email or web address] [facility] [address] [facility] [address], [place], [address], 11/06/2024 10:36:12 Procedure Notes None recorded. Medical Equipment None Reported. Allergies No known drug allergies Medications Name Sig Start Date Stop Date Status Note LastModified by Organization Details LastModified Time losartan 50 mg tablet Take 1 tablet every day by oral route. 2023 active Not Available Not Available Not Avai lable metformin 500 mg tablet 12/22 completed Not Available Not Available Not Available ibuprofen 800 mg tablet active Not Available Not Available Not Available glipizide ER 5 mg tablet, extended release 24 hr Take 1 tablet every day by oral route. active Not Available Not Available No t Available amlodipine 5 mg tablet TAKE 1 TABLET BY MOUTH ONCE DAILY 08/31 completed Not Available Not Available Not Available amoxicillin 875 mg tablet TAKE 1 TABLET BY MOUTH EVERY 12 HOURS 12/22 completed Not Available Not Available Not Available OneTouch Ultra Test strips Test twice daily active Not Available Not Available No t Available amlodipine 10 mg tablet Take 1 tablet by mouth once daily active Not Available Not Available No t Available metformin 1,000 mg tablet Take 1 tablet twice a day by oral route. active Not Available Not Available No t Available omeprazole 20 mg capsule,del ayed release Take 1 capsule every day by oral route. 2023 active Not Available Not Available Not Avai lable hydrochloro thiazide 25 mg tablet Take 1 tablet by mouth once daily active Not Available Not Available No t Available ibuprofen 600 mg tablet TAKE 1 TABLET BY MOUTH THREE TIMES DAILY NEEDED FOR PAIN 08/31 completed Not Available Not Available Not Available ondansetron 4 mg disintegrat ing tablet Dissolve one tablet by mouth three times daily as needed active Not Available Not Available No t Available losartan 100 mg tablet Take 1 tablet every day by oral route. active Not Available Not Available No t Available methadone 08/31 completed Not Available Not Available Not Available OneTouch Ultra2 Meter USE DIRECTED 2024 active Not Available Not Available Not Avai lable OneTouch Delica Plus Lancet 30 gauge active Not Available Not Available Not Available ID NOW COVID-19 Test Kit TEST DIRECTED TODAY 05/13 completed Not Available Not Available Not Available Vitals Date Recorded Body weight Body temperature Heart rate Oxygen saturation Oxygen saturation in Arterial blood by Pulse oximetry Systolic blood pressure Diastolic blood pressure Provider Name and Address Organization Details Last Updated DateTime 5 55177.5 5 g 96.7 [degF] 90 /min 98 % 98 % 130 mm[Hg] 70 mm[Hg] Maegan Mendoza RN [facility] [employer] 12:02:17 Date Recorded Body weight Body temperature Heart rate Oxygen saturation Oxygen saturation in Arterial blood by Pulse oximetry Systolic blood pressure Diastolic blood pressure Provider Name and Address Organization Details Last Updated DateTime 5 15186.0 7 g 97.2 [degF] 96 /min 98 % 98 % 124 mm[Hg] 80 mm[Hg] Maegan Mendoza RN [facility] [employer] 09:52:24 Date Recorded Body mass index (BMI) Body height Provider Name and Address Organization Details Last Updated DateTime 12/21/2024 29 kg/m2 165.1 cm MELITON Crespo-Ninoska [address] [facility], [facility] [[email or web address] [address], [place], [address], [employer] 12/22/2024 09:41:40 Date Recorded Systolic blood pressure Diastolic blood pressure Provider Name and Address Organization Details Last Updated DateTime 09/06/2024 168 mm[Hg] 104 mm[Hg] Ranjana Mar RN [facility] [employer] 09/06/2024 08:44:12 Date Recorded Systolic blood pressure Diastolic blood pressure Systolic blood pressure Diastolic blood pressure Provider Name and Address Organization Details Last Updated DateTime 09/13/2024 170 mm[Hg] 114 mm[Hg] 170 mm[Hg] 114 mm[Hg] Earlene Doherty RN [facility] [employer] 10:11:56 Date Recorded Systolic blood pressure Diastolic blood pressure Provider Name and Address Organization Details Last Updated DateTime 09/20/2024 138 mm[Hg] 80 mm[Hg] Maegan Mendoza RN [facility] [employer] 09/20/2024 11:54:55 Social History Question Answer Notes LastModified by Organizat ion Details LastModified Time Tobacco Smoking Status Current Every Day Smoker Tess Ruiz RN [facility], [facility] 05/13/2023 08:12:01 What Is Your Level Of Alcohol Consumption? None Information not available 05/13/2023 What Is Your Level Of Caffeine Consumption? Moderate Information not available 05/13/2023 How Much Tobacco Do You Smoke? 1 PPD Information not available 05/13/2023 Do You Feel Stressed (tense, Restless, Nervous, Or Anxious, Or Unable To Sleep At Night)? [id number] Information not available 05/13/2023 Do You Use Any Illicit Or Recreational Drugs? No Information not available 05/13/2023 Sex: Unknown Functional Status None recorded. Mental Status None recorded. Family History Relationship Description Onset Age of this Age Resolved Age Notes LastModified by Organization Details LastModified Time Maternal Grandmother Diabetes mellitus Not available 04/18 08:10:33 Maternal Grandmother History of hypertension Not available 0 05/13/2023 08:11:20 Paternal Grandmother Diabetes mellitus Not available 04/18 08:10:33 Paternal Grandmother History of hypertension Not available 0 05/13/2023 08:11:20 Maternal Grandfather History of hypertension Not available 0 05/13/2023 08:11:20 Mother History of hypertension Not available 0 05/13/2023 08:11:20 Paternal Grandfather History of hypertension Not available 0 05/13/2023 08:11:20 Medical History No medical history recorded. Past Encounters Encounter ID Performer Location Encounter Start Date Encounter Closed Date Diagnosis/Indication Diagnosis SNOMED-CT Code Diagnosis ICD10 Code Diagnosis Note [id number] MELITON Rojas [facility] Primary Care [facility] [address] [place] [address] 05/13/2023 07:59:29 05/13/2023 08:58:03 Family history of diabetes mellitus type 2 106675658 Z83.3 Essential hypertension 94095783 I10 Not in good controlAsy mptomatic at this timeResume losartan 100mg & amlodipine 5mg dailyEncou raged pt to increase water intake, reduce caffeine intake, exercise regularly, decrease/e liminate sodium intake, work on weight loss and stress reductionW ill continue to monitor closely Hyperlipid emia screening 902459612 Z13.220 Near syncope 364320074 R 55 Will check labs to evaluate for anemia, thyroid dysfunctio n. Screening for cancer 158 31771 Z12.5 41yo male, due for psa screening Chronic hepatitis C 1283 07851 B18.2 Chronic, current status unknownWil l refer to GI for further evaluation /tx. [id number] CHRISTIANO Crespo [facility] Primary Care [facility] [address] [place] [address] 08/31/2024 11:34:52 08/31/2024 12:09:07 Adult health examination 867362188 Z00.01 Discussed medication compliance and routine follow up.Discuss ed healthy diet and routine exercise.R eviewed vaccine records and made recommenda tions as needed.Enc ouraged annual eye and dental exams, as well as twice yearly dental cleanings. Will check screening labs as listed below. Essential hypertension 90856534 I10 162/94Disc ussed medication compliance .Discussed DASH diet and limiting caffeine intake.Harjit l start treatment and check labs as listed below. Chronic hepatitis C 1283 74617 B18.2 Gastroesop hageal reflux disease without esophagitis 927764041 K21.9 Body mass index 30+ - obesity 823172182 Z68.30 Discussed healthy diet and routine exercise. Smoker 76057668 F17.200 refuses education on smoking cessation. [id number] CHRISTIAON Crespo [facility] Primary Care [facility] [address] [facility] [place] [address] 09/06/2024 08:20:41 09/06/2024 08:46:12 [id number] CHRISTIANO Crespo [facility] Primary Care [facility] [address] [facility] [place] [address] 09/13/2024 08:58:35 09/13/2024 09:44:56 [id number] CHRISTIANO Crespo [facility] Primary Care [facility] [address] [facility] [place] [address] 09/20/2024 11:47:37 09/20/2024 12:52:40 [id number] CHRISTIANO Crespo [facility] Primary Care [facility] [address] [facility] [place] [address] 11/23/2024 11:46:02 11/23/2024 13:32:11 Uncontrolled type 2 diabetes mellitus 191300180 E11.65 Will check labs as listed below.Will start patient on Rybelsus 3mg daily for one month, then increase to 7mg daily.(Ryb elsus 3mg samples provided to patient in office.)Di scussed annual diabetic eye and foot exams.Disc ussed low carb/low sugar diet and routine exercise. Essential hypertension 46624098 I10 130/70.Doi ng well on current medication s, will refill as needed. [id number] CHRISTIANO Crespo [facility] Primary Care [address] [address] 12/21/2024 09:44:15 12/21/2024 10:26:53 Uncontrolled type 2 diabetes mellitus 089666914 E11.65 Essential hypertension 61900814 I10 124/80Doin g well on current medication s, will refill as needed. Health Concerns Section Related Observation LastModified by Organization Detai ls LastModified Time None Recorded Concern Status LastModified by Organization Details LastModified Time None Recorded Advance Directives Directive None Recorded Payers Encounter Date Sequence Insurance Name Policy Number Policy Miller Covered Member ID Miller Member ID Guarantor Name 09/06/2024 2 [place] [employer] Bean Gallo [id number] Bean Gallo 09/13/2024 2 [place] [facility] Bean Gallo [id number] Bean Gallo 09/20/2024 2 [place] [facility] Bean Gallo [id number] Bean Gallo 11/23/2024 2 [place] [facility] Bean Gallo [id number] Bean Gallo 11/23/2024 1 [facility] (MEDICAID HMO) [id number] Bean Gallo [id number] Bean Gallo 12/21/2024 2 [place] [facility] Bean Gallo [id number] Bean Gallo 12/21/2024 1 [facility] (MEDICAID HMO) [id number] Bean Gallo [id number] Bean Gallo Notes Date Note Type Note Provider Name and Address Organization Details Recorded Time 5 text/html Patient is a 43 year old male that presents to the office for hospital follow up. Patient went to [facility] in [place] on 11/14 for fatigue, increased urination and increased thirst. A1c at hospital was 11.1. Metformin was increased to 500mg twice daily. Patient is checking BS at home two to three times daily. BS has been 380-460, still experiencing mild fatigue. CHRISTIANO Crespo [address], [place], [address], [employer] 11/23/2024 12:25:30 5 text/html Patient is a 43 year old male that presents to the office for follow up. Patient reports he is doing much better, patient reports his symptoms of hyperglycemia have subsided and he has lost weight. Patient continues to check sugars at home and average about 130-150. Diabetes: Rybelsus 3mg daily, Metformin 1000mg BID and Glipizide ER 5mg daily.Hypertension: Amlodipine 10mg daily, Hydrochlorothiazide 25mg daily, Losartan 100mg dailyGERD: Omeprazole 20mg daily CHRISTIANO Crespo [address], [address], [place], [address], [employer] 12/22/2024 09:43:52
--- OUTSIDE RECORDS SUMMARY | 2025-02-07 14:30 | XMS_ITS | Clinical Summary ---
Author Organization [facility] Address [address] [place] [address] Care Team Providers Care Loading Machine Tool Setter Name Role Phone Irma Louis NP Primary Care Provider + [phone] Allergies No known active allergies Medications metFORMIN (GLUCOPHAGE) 500 mg tablet Take 1 tablet (500 mg total) by mouth 2 (two) times a day with meals 60 tablet 11/14/2024 Active Encounters Date Type Department Care Team Description 12/01/2024 10:45 AM PBX TECHNICIAN Lab [facility] Lab [address] [place] [address] 11/14/2024 6:54 PM PBX TECHNICIAN - 11/14/2024 10:24 PM PBX TECHNICIAN Emergency [address] [address] Adalid Edwards MD Hyperglycemia due to diabetes mellitus (HCC) (Primary Dx) Discharge Disposition: Discharge to home or self care from Last 3 Months Medical History Medical History Date Comments Hypertension Social History Tobacco Use Types Packs/Day Years [...] on file Legal Sex Male 7:50 PM PBX TECHNICIAN Gender Identity Not on file Sexual Orientation Not on file Obstetrics History Last Filed Vital Signs Vital Sign Reading Time Taken Comments Blood Pressure 114/82 11/14/2024 10:00 PM PBX TECHNICIAN Pulse 88 11/14/2024 10:15 PM PBX TECHNICIAN Temperature 36.9 C (98.4 F) 11/14/2024 4:43 PM PBX TECHNICIAN Respiratory Rate 18 11/14/2024 6:50 PM PBX TECHNICIAN Oxygen Saturation 100% 11/14/2024 10:15 PM PBX TECHNICIAN Inhaled Oxygen Concentration - - Weight 81.6 kg (180 lb) 11/14/2024 4:43 PM PBX TECHNICIAN Height 167.6 cm (5' 6 ) 08/17/2024 11:40 AM CDT Body Mass Index 29.05 08/17/2024 11:40 AM CDT Plan of Treatment Health Maintenance Due Date Last Done Comments Albumin Creatinine Ratio, Urine 11/16/1982 Depression Screening 11/16/1982 Hepatitis C Screening 11/16/1982 Prostate Cancer Screening-PSA 11/16/1982 Dilated Eye Exam 11/17/1982 Foot Exam 11/17/1982 Lipid Panel 11/17/1982 DTaP/Tdap/Td Vaccine (1 - Tdap) 11/16/1993 Varicella Vaccines (1 of 2 - 13+ 2-dose series) 11/16/1995 Hepatitis B Screening 11/16/2000 Regular Well Visit/Exam 18-64 11/16/2000 Pneumococcal vaccine <65 (1 of 2 - PCV) 11/16/2001 Covid-19 Vaccine (3 - 2023-2 5 season) 2024 12/05/2021, 11/07/2021 Influenza Vaccine (#1) 2024 Hemoglobin A1C 05/31/2025 12/01/2024, 11/14/2024 eGFR 11/14/2025 11/14/2024, 08/17/2024 HPV Vaccines Aged Out No longer eligi ble based on patient's age to complete this topic Procedures Procedure Name Priority Date/Time Associated Diagnosis Comments HEMOGLOBIN A1C Routine 12/01/2024 11:05 AM PBX TECHNICIAN POCT GLUCOSE DEVICE Routine 11/14/2024 1 0:11 PM PBX TECHNICIAN XR CHEST 1 VIEW ED 11/14/2024 9:18 PM PBX TECHNICIAN POCT GLUCOSE DEVICE Routine 11/14/2024 9 :16 PM PBX TECHNICIAN POC BLOOD GAS AND CHEMISTRIES, VENOUS Routine 11/14/2024 8:43 PM PBX TECHNICIAN POCT GLUCOSE DEVICE Routine 11/14/2024 7 :17 PM PBX TECHNICIAN POCT GLUCOSE DEVICE Routine 11/14/2024 5 :14 PM PBX TECHNICIAN HEMOGLOBIN A1C STAT 11/14/2024 5:07 PM PBX TECHNICIAN MANUAL DIFFERENTIAL STAT 11/14/2024 5 :07 PM PBX TECHNICIAN EGFR STAT 11/14/2024 5:07 PM PBX TECHNICIAN BETA-HYDROXYBUTYRATE STAT 11/14/2024 5:07 PM PBX TECHNICIAN COMPREHENSIVE METABOLIC PANEL STAT 11/14/2024 5:07 PM PBX TECHNICIAN CBC WITH AUTO DIFFERENTIAL STAT 11/14/2024 5:07 PM PBX TECHNICIAN URINALYSIS AND REFLEX TO MICROSCOPIC AND CULTURE STAT 11/14/2024 5:07 PM PBX TECHNICIAN ECG 12-LEAD STAT 11/14/2024 5:04 PM PBX TECHNICIAN from Last 3 Months Results * (ABNORMAL) Hemoglobin A1c (12/01/2024 11:05 AM PBX TECHNICIAN) [facility] Hgb A1C 13.1(H) 4.0 - 5.6 % Comment:Testing performed by : [address] [address] Estimated Average Glucose 329 mg/dL CHLOE ERICKSON Comment: The ADA recommends reporting an estimated Average Glucose (eAG) with all Hemoglobin A1c results using the equation derived from a study of 507 normal and diabetic adults. Minority populations were underrepresented and children were not included. (Diabetes Care 31:9568-7586, 2008). The eAG is not equivalent to a fasting glucose. Testing performed by: [address] [address] Blood 12/01/2024 11:0 5 AM PBX TECHNICIAN 12/01/2024 11:32 AM PBX TECHNICIAN us Irma Louis GAS CUTTER LAB BLOOD ORDERABLES Final R esult Performing Organization Address City/[facility]/ZIP Co de Phone Number [facility]LOE [address] [place] [address] * (ABNORMAL) POCT glucose (11/14/2024 10:11 PM PBX TECHNICIAN) Glucose, POC 352(H) 70 - 199 mg/dL Blood 11/14/2024 10:1 1 PM PBX TECHNICIAN 11/14/2024 10:11 PM PBX TECHNICIAN us Notinfile Unknown LAB POCT ORDERABLES - DEVICE F inal Result Performing Organization Address [facility] Co de Phone Number [facility] [address] [place] [address] * XR Chest 1 Vw Portable (11/14/2024 9:18 PM PBX TECHNICIAN) Anatomical Region Laterality Modality Body, Chest N/A Computed Radiogr aphy 11/14/2024 10:3 6 PM PBX TECHNICIAN Narrative 11/14/2024 10:36 PM PBX TECHNICIAN EXAM DESCRIPTION: XR CHEST 1 VIEW REASON [...] Annemarie Yin M.D. SN T: Report ID: [id number] Reading Location: [id number] Procedure Note Annemarie Yin MD - 11/14/2024 [...] Annemarie Yin M.D. SN T: Report ID: [id number] Reading Location: [place] [address] Ofelia Grimes GAS CUTTER IMG XR PROCEDURES Final Result * (ABNORMAL) POCT glucose (11/14/2024 9:16 PM PBX TECHNICIAN) Glucose, POC 469(C) 70 - 199 mg/dL Glucose comment 1 Glu2: CHLOE Blood 11/14/2024 9:16 PM PBX TECHNICIAN 11/14/2024 9:16 PM PBX TECHNICIAN Notinfile Unknown LAB POCT ORDERABLES - DEVICE F inal Result [facility] [address] [facility] Department [place] [address] * (ABNORMAL) POC Blood Gas and Chemistries, Venous - (11/14/2024 8:43 PM PBX TECHNICIAN) pH,matthew POC 7.36 7.32 - 7.43 pCO2, matthew POC 52(H) 40 - 50 mmHg [facility]E pO2,matthew POC 32 mmHg [facility]LOE Comment: Interpretive Data No reference range established. Current interpretive data was last revised 2020. HCO3, matthew (Calc) POC 29 20 - 30 mmol/L [facility] Base excess, matthew POC 3 mmol/L [facility]E Comment: Interpretive Data No reference range established. Current interpretive data was last revised 2020. Oxy Hgb, matthew POC 51.2(L) 90.0 - 95.0 % [facility] Met Hgb, matthew POC 0.3 0.0 - 1.9 % [facility] Carboxy Hgb, matthew POC 6.5(H) 0.0 - 2.9 % [facility] Hemoglobin, matthew POC 14.0 13.0 - 17.5 g/dL [facility] Sodium, matthew POC 131(L) 135 - 145 mmol/L [facility] Potassium, matthew POC 3.8 3.3 - 4.9 mmol/L [facility] Comment: Interpretive Data This method is not able to assess for hemolysis, which may falsely increase potassium concentrations. If further testing is needed to evaluate this result, consider in-laboratory plasma potassium. Current Interpretive Data was last revised on 2022. Glucose, matthew POC 564(C) 70 - 199 mg/dL [facility] Ionized Calcium, matthew POC 4.81 4.50 - 5.10 mg/dL [facility] Lactate, matthew POC 1.3 0.7 - 2.0 mmol/L [facility] Blood 11/14/2024 8:43 PM PBX TECHNICIAN 11/14/2024 8:43 PM PBX TECHNICIAN Notinfile Unknown LAB POCT ORDERABLES - DEVICE F inal Result Performing Organization Address [facility] Co de Phone Number [address] [place] [address] * (ABNORMAL) POCT glucose (11/14/2024 7:17 PM PBX TECHNICIAN) [facility] Glucose, POC >600(C) 70 - 199 mg/dL Glucose comment 1 Glu2: [facility] Blood 11/14/2024 7:17 PM PBX TECHNICIAN 11/14/2024 7:17 PM PBX TECHNICIAN us Notinfile Unknown LAB POCT ORDERABLES - DEVICE F inal Result Performing Organization Address City/[facility]/ZIP Co de Phone Number [address] [place] [address] * (ABNORMAL) POCT glucose (11/14/2024 5:14 PM PBX TECHNICIAN) Glucose, POC >600(C) 70 - 199 mg/dL Glucose comment 1 RN/MD Notified [facility] Blood 11/14/2024 5:14 PM PBX TECHNICIAN 11/14/2024 5:14 PM PBX TECHNICIAN Notinfile Unknown LAB POCT ORDERABLES - DEVICE F inal Result Performing Organization Address [facility] Co de Phone Number [address] [place] [address] * eGFR (11/14/2024 5:07 PM PBX TECHNICIAN) Pathologist [facility] eGFR 88 >=60 mL/min/1. 73 m2 Comment: [...] last reviewed 2021. Blood 11/14/2024 5:07 PM PBX TECHNICIAN 11/14/2024 5:14 PM PBX TECHNICIAN Ofelia Grimes GAS CUTTER LAB BLOOD ORDERABLES Final Resul t Performing Organization Address [facility] Co de Phone Number [address] [employer] [address] * Beta-hydroxybutyrate (11/14/2024 5:07 PM PBX TECHNICIAN) Beta-Hydroxybut yrate 0.1 <=0.5 mmol/L Blood 11/14/2024 5:07 PM PBX TECHNICIAN 11/14/2024 5:43 PM PBX TECHNICIAN Iliana KERR LAB BLOOD ORDERABLES Final Resul t Performing Organization Address [facility] Co de Phone Number CHLOE [address] [place] [address] * (ABNORMAL) Urinalysis reflex to microscopic and culture Urine (11/14/2024 5:07 PM PBX TECHNICIAN) Color, ur Yellow Yellow Clarity, ur Clear Clear [facility] Specific gravity, ur 1.028 1.003 - 1.030 [facility] pH, urine 6.0 [facility] Comment: Interpretive Data U rine pH is affected by diet, medications, systemic acid-base disturbances, and renal tubular function. pH may affect urinary stone formation. For example, urine pH below 6.0 may help reduce the tendency for calcium phosphate stones and pH greater than 6.0 may reduce the tendency for uric acid stone formation. Source: [facility] Current Interpretive Data was last revised on 2017 Protein, ur ql Negative Negative [facility] Glucose, ur ql 4+(A) Negative [facility] Ketones, ur Negative Negative [facility] Bilirubin, ur Negative Negative [facility] Blood, ur Negative Negative [facility] Urobilinogen, ur <2.0 <2.0 mg/dL [facility] Nitrite, ur Negative Negative [facility] Leukocyte esterase, ur Negative Negative [facility] UA reflex comment Reflex conditions for microscopic UA and culture not met. [facility] Urine 11/14/2024 5:07 PM PBX TECHNICIAN 11/14/2024 5:14 PM PBX TECHNICIAN Ofelia Grimes NP LAB MICROBIOLOGY - GENERAL ORDER [place] Final Result Performing Organization Address City/[facility]/ZIP Co de Phone Number [facility]LOE [address] [place] [address] [place] [address] * (ABNORMAL) CBC with auto differential (11/14/2024 5:07 PM PBX TECHNICIAN) [facility] WBC 11.5(H) 3.8 - 9.9 K/cumm Hgb 15.1 13.0 - 17.5 g/dL [facility] Hct 42.1 38.9 - 50.3 % [facility] Plt 162 150 - 400 K/cumm [facility] MPV 11.3 9.1 - 12.3 fL [facility] RBC 4.98 4.30 - 5.80 M/cumm [facility] MCV 84.5 81.3 - 96.4 fL [facility] MCH 30.3 27.1 - 33.3 pg [facility] MCHC 35.9(H) 32.3 - 35.7 g/dL [facility] RDW CV 11.9 11.1 - 14.9 % [facility] RDW SD 35.9 35.7 - 48.1 fL [facility] NRBC abs 0.00 0.00 - 0.01 K/cumm [facility] Blood 11/14/2024 5:07 PM PBX TECHNICIAN 11/14/2024 5:14 PM PBX TECHNICIAN us Ofelia Grimes NP LAB BLOOD ORDERABLES Edited Resu lt - Final [facility] [address] [facility] Department [place] [address] * (ABNORMAL) Manual Differential (11/14/2024 5:07 PM PBX TECHNICIAN) [facility] Differential Manual Cells Counted 100 [facility] Neutrophil abs 5.0 1.5 - 6.5 K/cumm [facility] Lymphocyte abs 5.6(H) 0.8 - 3.3 K/cumm [facility] Monocyte abs 0.8 0.2 - 0.8 K/cumm [facility] Eosinophil abs 0.1 0.0 - 0.5 K/cumm [facility] Neutrophil pct 43.0 % [facility] Comment: Interpretive Data Percent cell count reference ranges are not reported, since discordance with absolute values may lead to misinterpretation of CBC data. Current Interpretive Data was last revised on 2018. Lymphocyte pct 49.0 % [facility] Comment: Interpretive Data Percent cell count reference ranges are not reported, since discordance with absolute values may lead to misinterpretation of CBC data. Current Interpretive Data was last revised on 2018. Monocyte pct 7.0 % [facility] Comment: Interpretive Data Percent cell count reference ranges are not reported, since discordance with absolute values may lead to misinterpretation of CBC data. Current Interpretive Data was last revised on 2018. Eosinophil pct 1.0 % [facility] Comment: Interpretive Data Percent cell count reference ranges are not reported, since discordance with absolute values may lead to misinterpretation of CBC data. Current Interpretive Data was last revised on 2018. RBC morphology Consistent with RBC Indicies [facility] Platelet estimate Automated Count Confirmed [facility] Blood 11/14/2024 5:07 PM PBX TECHNICIAN 11/14/2024 5:14 PM PBX TECHNICIAN us Ofelia Grimes NP LAB BLOOD ORDERABLES Final Resul t Performing Organization Address [facility] de Phone Number [address] [employer] [address] * (ABNORMAL) Hemoglobin A1c (11/14/2024 5:07 PM PBX TECHNICIAN) Hgb A1C 11.1(H) 4.0 - 5.6 % Estimated Average Glucose 272 mg/dL [facility] Comment: The ADA recommends reporting an estimated Average Glucose (eAG) with all Hemoglobin A1c results using the equation derived from a study of 507 normal and diabetic adults. Minority populations were underrepresented and children were not included. (Diabetes Care 31:3327-9728, 2008). The eAG is not equivalent to a fasting glucose. Blood 11/14/2024 5:07 PM PBX TECHNICIAN 11/14/2024 5:14 PM PBX TECHNICIAN us Iliana KERR LAB BLOOD ORDERABLES Final Resul t Performing Organization Address [facility] Co de Phone Number [address] [place] [address] * (ABNORMAL) Comprehensive metabolic panel (11/14/2024 5:07 PM PBX TECHNICIAN) Sodium 131(L) 135 - 145 mmol/L Potassium, pl 3.6 3.3 - 4.9 mmol/L [facility] Chloride 88(L) 97 - 110 mmol/L [facility] CO2 29 22 - 32 mmol/L [facility] Anion gap 14 2 - 15 mmol/L [facility] BUN 21 6 - 25 mg/dL [facility] Creatinine 1.08 0.80 - 1.30 mg/dL [facility] Glucose 786(C) 70 - 199 mg/dL [facility] Comment: Critical Result called to and read back by [email or web address], DATE: 2024-11-14 17:59:19 BY: [email or web address] Interpretive Data Fasting glucose >/= 126 mg/dl [...] 2022. Calcium 10.2 8.5 - 10.3 mg/dL [facility] Bilirubin, total 0.5 0.1 - 1.2 mg/dL [facility] Protein, pl 8.6(H) 6.5 - 8.5 g/dL [facility] Albumin 4.4 3.5 - 5.0 g/dL [facility] Alk phos 119 40 - 130 Units/L [facility] ALT 210(H) 7 - 55 Units/L [facility] AST 123(H) 10 - 50 Units/L [facility] Blood 11/14/2024 5:07 PM PBX TECHNICIAN 11/14/2024 5:14 PM PBX TECHNICIAN us Ofelia Grimes NP LAB BLOOD ORDERABLES Final Resul t [facility] [address] [facility] Department [place] [address] * ECG 12 lead (11/14/2024 5:04 PM PBX TECHNICIAN) Ventricular Rate EKG/Min 94 BPM [facility] Atrial Rate 94 BPM [facility] SD-Interval (MSEC) 144 ms [facility] QRS-Interval (MSEC) 84 ms [facility] QT-Interval (MSEC) 346 ms [facility] QTc 432 ms [facility] P [place] 52 degrees [facility] R [place] 8 degrees [facility] T [place] 38 degrees [facility] Diagnosis Sinus rhythm with frequent Premature ventricular complexes Otherwise normal ECG When compared with ECG of 17-AUG-2024 11:59, No significant change was found Confirmed by HELEN VALLE M.D. ([id number]) on 11/15/2024 11:52:00 PM [facility] 11/14/2024 5:04 PM PBX TECHNICIAN 11/15/2024 11:52 PM PBX TECHNICIAN Ofelia Grimes NP ECG ORDERABLES Final Result [facility] from Last 3 Months Insurance [employer] Member Subscriber Plan / Payer (Ef fective 2019-Present) Name:Bean Gallo Relation to Subscriber:Self Name:Bean Gallo Payer ID:[id number] (NAIC) Type:[employer] Address: [facility] [id number] [facility] ANTH ACCESS [facility] Care Teams Loading Machine Tool Setter Relationship Specialty Start Date End Date Irma Louis, ROEL [address] [place] [address] PCP - General Family Medicine 11/14/24
[2025-02-09 14:28] LABS: Hepatitis C RNA, Quant PCR 3100000 IU/mL (NOT DETECTED)
== END 2025-02-07 12:46 | disposition home or self-care (01) ==
LOC: ANHLAB 12:49
PROVIDERS: PCP Nurse Practitioner Family; Visit Provider Nurse Practitioner Family
DX: Z86.19 Personal history of other infectious and parasitic diseases (principal)
CPT/HCPCS: 36415; 87522

== ENCOUNTER 2025-04-18 11:11 | Outpatient (CLI) | payer BC, SELFPAY ==
--- OUTSIDE RECORDS SUMMARY | 2025-04-18 11:52 | XMS_ITS | CONTINUITY OF CARE DOCUMENT ---
Author Name eros cooney Address Unknown Organization [facility] Address [address] [facility] [address] [place] [address] Phone [phone] Care Team Providers Care Professor Of Sport Management Name Role Phone Dandre GOLDEN, Jerod Dwyer Unavailable Heriberto SEVILLA, Irma Unavailable [phone] PROBLEMS Condition Status Date Provider Notes Cardiovascular Condition Screening active S gertrude Amos MD G E R D active Jerod Amos MD Hypertension active Jerod Amos MD Tobacco abuse active Jerod Amos MD ENCOUNTERS Date Type Provider Location Encounter Diag nosis - In-person encounter Office Visit Jerod Amos MD [place] [facility] Tobacco abuseHypertensionG E R DCardiovascular Condition [...] TA BLET BY MOUTH EVERY DAY Jo Marqeuz amlodipine 10 mg tablet active Take 1 t ablet by mouth once a day Jo Marquez omeprazole active Jo Marquez hydrochlorothiazide active TAKE 1 CAPSU LE BY MOUTH EVERY DAY Jo Marquez INSURANCE PROVIDERS Payer name Policy type / Coverage type Luis Armando red republican ID [employer] MEDICAID Medicaid [id number] ADVANCE DIRECTIVES Name Date DISCUSSED - NO [...]
--- OUTSIDE RECORDS SUMMARY | 2025-04-18 11:52 | XMS_ITS | Clinical Summary ---
Author Organization [facility] Address [address] [facility] [place] [address] Care Team Providers Care Equip Tech Name Role Phone Unavailable Primary Care Provider Unavailabl e Source Comments [facility],non-owned Affiliates and Associated Physician Practices is amultiple site organization consisting of ambulatory clinics and hospital sitesin [place], [place], [place] and [place]. This disclosure is being madepursuant to the Care Everywhere program and may not contain all information available regarding this patient. Last updated 18.[employer] [facility] Allergies No known active allergies Medications * Be aware that medications may not be up to date on this document. Alwaysverify current medications with the patient. 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
--- OUTSIDE RECORDS SUMMARY | 2025-04-18 11:52 | XMS_ITS | Data Portability ---
Author Organization [facility], Main Office Address [address] [place] [address] Assessment No assessment recorded. Plan of Treatment Reminders Order Date Submit Date Provider Last Modified By Organization Details Last Modified Time Details Appointments None recorded. Lab HbA1c (hemoglobin A1c), blood 2024 [email or web address] [place] [address] Outpatient Lab, [address] [place] [address], [address], 5 09:56:22 microalbumi n, urine - Sent to [facility] [email or web address] [place] [address] Outpatient Lab, [address] [place] [address], [address], 5 12:44:44 Referral diabetic ophthalmolo gy referral - Please call patient to schedule an appointment . Thank you. 2024 025 vane Chen Professional Nadine Prabhakar, [place], [address], 5 08:54:10 Procedures None recorded. Surgeries None [...] Organization Detail LastModifiedTime 11/05/20 24 11/03/2024 , [facility] ardio gram No observ ation record ed. [email or web address] [facility] [address], [place], [address], 11/06/2024 10:36:12 Result Notes None recorded. Problems Name Problem SNOMED Code Status Onset Date Resolution Date Notes Provider Name and Address Organization Details Recorded Time Essential hypertension 48740583 Active 2022 MELITON Rojas [address], [address], [place], [address], [facility] 3 08:22:49 Near syncope 852094581 Active 2022 MELITON Rojas [address], [address], [place], [address], [facility] 3 08:24:52 Chronic hepatitis C 711081229 Active 2022 MELITON Rojas [address], [place], [address], [facility] 3 08:30:29 Gastroesophage al reflux disease without esophagitis 341546023 Active 2023 CHRISTIANO Crespo [address], [place], [address], [facility] 4 12:02:39 Smoker 09600946 Active 2023 CHRISTIANO Crespo [address], [address], [place], [address], [facility] 4 23:35:59 Uncontrolled type 2 diabetes mellitus 364793007 Active 2024 CHRISTIANO Crespo [address], [place], [address], [facility] 5 12:06:48 Nausea and vomiting 10147705 Active 2024 CHRISTIANO Crespo [address], [place], [address], [facility] 5 11:02:03 Problem Notes None recorded. Medical Equipment None Reported. [...] extended release 24 hr Take 1 tablet by mouth once daily 2024 active Not Available Not Available Not Avai lable amlodipine 5 mg tablet TAKE 1 TABLET [...] Available ondansetron 4 mg disintegrat ing tablet DISSOLVE 1 TABLET BY MOUTH THREE TIMES DAILY NEEDED 2024 active Not Available Not Available Not Avai lable losartan 100 mg tablet Take 1 tablet by mouth once daily 2024 active Not Available Not Available Not Avai lable methadone 08/31 completed Not Available Not Available [...] Address Organization Details Last Updated DateTime 5 12754.5 5 g 96.7 [degF] 90 /min 98 % 98 % 130 mm[Hg] 70 mm[Hg] Maegan Mendoza RN [facility] [employer] 12:02:17 Date Recorded Body mass index (BMI) Body height Provider Name and Address Organization Details Last Updated DateTime 12/21/2024 29 kg/m2 165.1 cm CHRISTIANO Crespo [address] [facility], [facility] [address], [place], [address], [facility] [employer] 12/22/2024 09:41:40 Date Recorded Body weight Body temperature Heart rate Oxygen saturation Oxygen saturation in Arterial blood by Pulse oximetry Systolic blood pressure Diastolic blood pressure Provider Name and Address Organization Details Last Updated DateTime 5 50386.0 7 g 97.2 [degF] 96 /min 98 % 98 % 124 mm[Hg] 80 mm[Hg] Maegan Mendoza RN [facility] [employer] 09:52:24 Date Recorded Systolic blood pressure Diastolic blood pressure Provider Name and Address Organization Details Last Updated DateTime 09/06/2024 168 mm[Hg] 104 mm[Hg] Ranjana Mar RN [facility] [employer] 09/06/2024 08:44:12 Date Recorded Systolic blood pressure Diastolic blood pressure Systolic blood pressure Diastolic blood pressure Provider Name and Address Organization Details Last Updated DateTime 09/13/2024 170 mm[Hg] 114 mm[Hg] 170 mm[Hg] 114 mm[Hg] Earlene Doherty RN [facility] [employer] 10:11:56 Date Recorded Systolic blood pressure Diastolic blood pressure Provider Name and Address Organization Details Last Updated DateTime 09/20/2024 138 mm[Hg] 80 mm[Hg] Maegan Mendoza RN [facility] [employer] 09/20/2024 11:54:55 Social History Question Answer Notes LastModified by Organizat ion Details LastModified Time Tobacco Smoking Status Current Every Day Smoker QUINTIN Mccracken, [facility] [employer] 05/13/2023 08:12:01 What Is Your Level Of Caffeine Consumption? Moderate Information not available 05/13/2023 How Much Tobacco Do You Smoke? 1 PPD Information not available 05/13/2023 Sex: Unknown Functional Status Question Answer Note LastModified by Organizat ion Details LastModified Time Do you use any illicit or recreational drugs? No Information not available 05/13/2023 What is your level of alcohol consumption? None Information not available 05/13/2023 Mental Status Question Answer Note LastModified by Organization D etails LastModified Time Do you feel stressed (tense, restless, nervous, or anxious, or unable to sleep at night)? [id number] Information not available 05/13/2023 Family History Relationship Description Onset Age of [...] SNOMED-CT Code Diagnosis ICD10 Code Diagnosis Note [id number] MELITON Rojas [facility] Primary Care [address] [place] [address] 05/13/2023 07:59:29 05/13/2023 08:58:03 Family history of diabetes mellitus type 2 938426198 Z83.3 Essential hypertension 05730853 I10 Not in good controlAsy mptomatic at this timeResume losartan 100mg & amlodipine 5mg dailyEncou raged pt to increase water intake, reduce caffeine intake, exercise regularly, decrease/e liminate sodium intake, work on weight loss and stress reductionW ill continue to monitor closely Hyperlipid emia screening 970111400 Z13.220 Near syncope 662769605 R 55 Will check labs to evaluate for anemia, thyroid dysfunctio n. Screening for cancer 158 80263 Z12.5 41yo male, due for psa screening Chronic hepatitis C 1283 95797 B18.2 Chronic, current status unknownWil l refer to GI for further evaluation /tx. [id number] CHRISTIANO Crespo [facility] Primary Care [address] [place] [address] 08/31/2024 11:34:52 08/31/2024 12:09:07 Adult health examination 616455709 Z00.01 Discussed medication compliance and routine follow up.Discuss ed healthy diet and routine exercise.R elizabetiewed vaccine records and made recommenda tions as needed.Enc ouraged annual eye and dental exams, as well as twice yearly dental cleanings. Will check screening labs as listed below. Essential hypertension 97522831 I10 162/94Disc ussed medication compliance .Discussed DASH diet and limiting caffeine intake.Harjit l start treatment and check labs as listed below. Chronic hepatitis C 1283 09574 B18.2 Gastroesop hageal reflux disease without esophagitis 238518873 K21.9 Body mass index 30+ - obesity 470794277 Z68.30 Discussed healthy diet and routine exercise. Smoker 21316497 F17.200 refuses education on smoking cessation. [id number] [facility]O [facility]respo [facility] [address] [place] [address] 09/06/2024 08:20:41 09/06/2024 08:46:12 [id number] CHRISTIANO Crespo [facility] [address] [place] [address] 09/13/2024 08:58:35 09/13/2024 09:44:56 [id number] CHRISTIANO Crespo [facility] Care [address] [place] [address] 09/20/2024 11:47:37 09/20/2024 12:52:40 [id number] CHRISTIANO Crespo [facility] Primary Care [address] [place] [address] 11/23/2024 11:46:02 11/23/2024 13:32:11 Uncontrolled type 2 diabetes mellitus 109041952 E11.65 Will check labs as listed below.Will start patient on Rybelsus 3mg daily for one month, then increase to 7mg daily.(Ryb elsus 3mg samples provided to patient in office.)Di scussed annual diabetic eye and foot exams.Disc ussed low carb/low sugar diet and routine exercise. Essential hypertension 06481346 I10 130/70.Doi ng well on current medication s, will refill as needed. [id number] CHRISTIANO Crespo [facility] Primary Care [address] [place] [address] 12/21/2024 09:44:15 12/21/2024 10:26:53 Uncontrolled type 2 diabetes mellitus 526892174 E11.65 Essential hypertension 32703325 I10 124/80Doin g well on current medication s, will refill as needed. Health Concerns Section Related Observation LastModified by Organization Detai ls LastModified Time None Recorded Concern Status LastModified by Organization Details LastModified Time None Recorded Advance Directives Directive None Recorded Payers Encounter Date Sequence Insurance Name Policy Number Policy Miller Covered Member ID Miller Member ID Guarantor Name 09/06/2024 2 [place] [employer] Bean Gallo [id number] Bean Gallo 09/13/2024 2 [place] [facility] OF PUBLIC AID Bean Gallo [id number] Bean Gallo 09/20/2024 2 [place] [facility] OF PUBLIC AID Bean Gallo [id number] Bean Gallo 11/23/2024 2 [place] [facility] OF PUBLIC AID Bean Gallo [id number] Bean Gallo 11/23/2024 1 [facility] (MEDICAID HMO) [id number] Bean Gallo [id number] Bean Mendoza Sabino 12/21/2024 2 [place] [facility] OF PUBLIC AID eBan Mendoza Sabino [id number] Bean Mendoza Sabino 12/21/2024 1 [facility] (MEDICAID HMO) [id number] Bean Gallo [id number] Bean Gallo Notes Date Note Type Note Provider Name and Address Organization Details Recorded Time 5 text/html Patient is a 43 year old male that presents to the office for hospital follow up. Patient went to [facility] in [place] on 11/14 for fatigue, increased urination and increased thirst. A1c at hospital was 11.1. Metformin was increased to 500mg twice daily. Patient is checking BS at home two to three times daily. BS has been 380-460, still experiencing mild fatigue. CHRISTIANO Crespo [address], [place], [address], [employer] 11/23/2024 12:25:30 5 text/html Patient is a [...] dailyGERD: Omeprazole 20mg daily CHRISTIANO Crespo [address], [address], [place], [address], [employer] 12/22/2024 09:43:52
--- OUTSIDE RECORDS SUMMARY | 2025-04-18 11:53 | XMS_ITS | Clinical Summary ---
Author Organization [facility] Address [address] [place] [address] Care Team Providers Care Lead Software Engineer Name Role Phone Irma Louis NP Primary Care Provider + [phone] Allergies No known active allergies Medications metFORMIN (GLUCOPHAGE) 500 mg tablet Take 1 tablet (500 mg total) by mouth 2 (two) times a day with meals 60 tablet 11/14/2024 Active sofosbuvir-velpa tasvir (Epclusa) 400-100 mg tablet per tabletIndication s:Viral Hepatitis C Take 1 tablet by mouth daily 84 tablet 03/21/2025 Active Active Problems No known active problems Encounters Date Type Department Care Team Description 03/21/2025 1:20 PM CDT Office Visit [facility] Infectious Diseases [address] [place] [phone] León Royal MD PhD Chronic hepatitis C without hepatic coma (HCC) (Primary Dx); Routine screening for STI (sexually transmitted infection); Opioid use disorder, mild, in sustained remission (HCC) from Last 3 Months Medical History Medical [...] on file Legal Sex Male 7:50 PM INVESTMENT COUNSELOR Gender Identity Not on file Sexual Orientation Not on file Obstetrics History Last Filed Vital Signs Vital Sign Reading Time Taken Comments Blood Pressure 108/72 03/21/2025 1:05 PM CDT Pulse 88 03/21/2025 1:05 PM CDT Temperature 36.6 C (97.9 F) 03/21/2025 1:05 PM CDT Respiratory Rate 18 11/14/2024 6:50 PM INVESTMENT COUNSELOR Oxygen Saturation 98% 03/21/2025 1:05 PM CDT Inhaled Oxygen Concentration - - Weight 81.1 kg (178 lb 11.2 oz) 03/21/2025 1:05 PM CDT Height 167.6 cm (5' 5.98) 03/21/2025 1:05 PM CD T Body Mass Index 28.86 03/21/2025 1:05 PM CDT Plan of Treatment Health Maintenance Due Date Last Done Comments Albumin Creatinine Ratio, Urine 11/16/1982 Depression Screening 11/16/1982 Prostate Cancer Screening-PSA 11/16/1982 Dilated Eye Exam 11/17/1982 Foot Exam 11/17/1982 Lipid Panel 11/17/1982 DTaP/Tdap/Td Vaccine (1 - Tdap) 11/16/1993 Varicella Vaccines (1 of 2 - 13+ 2-dose series) 11/16/1995 Hepatitis B Screening 11/16/2000 Regular Well Visit/Exam 18-64 11/16/2000 Pneumococcal vaccine <65 (1 of 2 - PCV) 11/16/2001 Covid-19 Vaccine ( - 2023-2 5 season) 2024 12/05/2021, 11/07/2021 Hemoglobin A1C 05/31/2025 12/01/2024, 11/14/2024 Influenza Vaccine (Season Ended) 2025 eGFR 11/14/2025 11/14/2024, 08/17/2024 Hepatitis C Screening Completed 03/21/2025 , 03/02/2025 HPV Vaccines Aged Out No longer eligi ble based on patient's age to complete this topic Procedures Procedure Name Priority Date/Time Associated Diagnosis Comments HEMOGLOBIN A1C Routine 12/01/2024 11:05 AM INVESTMENT COUNSELOR EGFR STAT 11/14/2024 5:07 PM INVESTMENT COUNSELOR from Last 3 Months or Most Recently Relevant to Health Maintenance Results * (ABNORMAL) Hemoglobin A1c (12/01/2024 11:05 AM INVESTMENT COUNSELOR) Hgb A1C 13.1(H) 4.0 - 5.6 % Comment:Testing performed by : [facility], [address] [place] [address]., [id number] Estimated Average Glucose 329 mg/dL [facility] Comment: The ADA recommends reporting an estimated Average Glucose (eAG) with all Hemoglobin A1c results using the equation derived from a study of 507 normal and diabetic adults. Minority populations were underrepresented and children were not included. (Diabetes Care 31:9541-7830, 2008). The eAG is not equivalent to a fasting glucose. Testing performed by: [facility], [address] [place] [address]., [address] Blood 12/01/2024 11:0 5 AM INVESTMENT COUNSELOR 12/01/2024 11:32 AM INVESTMENT COUNSELOR us Irma Louis NP LAB BLOOD ORDERABLES Final R esult [facility] [address] [facility] Department [place] [address] * eGFR (11/14/2024 5:07 PM INVESTMENT COUNSELOR) eGFR 88 >=60 mL/min/1. 73 m2 Comment: [...] last reviewed 2021. Blood 11/14/2024 5:07 PM INVESTMENT COUNSELOR 11/14/2024 5:14 PM INVESTMENT COUNSELOR us Ofelia Grimes NP LAB BLOOD ORDERABLES Final Resul t [facility] [address] [facility] Department [place] [address] from Last 3 Months or Most Recently Relevant to Health Maintenance Insurance [facility] [employer] [facility] Care Teams Lead Software Engineer Relationship Specialty Start Date End Date Irma oLuis NP [address] [place] [address] QUYEN BAKER [address] PCP - General Family Medicine 11/14/24
--- OUTSIDE RECORDS SUMMARY | 2025-04-18 11:53 | XMS_ITS | Referral Summary ---
Author Organization [facility] Address [address] [place] [address] Care Team Providers Care Associate Sales Manager Name Role Phone Irma Louis NP Primary Care Provider + [phone] Encounters Date Type Department Care Team Description 03/21/2025 1:20 PM CDT Office Visit [facility] Infectious Diseases [address] [place] [address] León Royal MD PhD Chronic hepatitis C without hepatic coma (HCC) (Primary Dx); Routine screening for STI (sexually transmitted infection); Opioid use disorder, mild, in sustained remission (HCC) from Last 3 Months Allergies No known active allergies Medications metFORMIN (GLUCOPHAGE) 500 mg tablet Take 1 tablet (500 mg total) by mouth 2 (two) times a day with meals 60 tablet 11/14/2024 Active sofosbuvir-velpa tasvir (Epclusa) 400-100 mg tablet per tabletIndication s:Viral Hepatitis C Take 1 tablet by mouth daily 84 tablet 03/21/2025 Active Active Problems No known active problems Social History Tobacco Use Types Packs/Day Years [...] on file Legal Sex Male 7:50 PM SWEEP MOLDER Gender Identity Not on file Sexual Orientation Not on file Last Filed Vital Signs Vital Sign Reading Time Taken Comments Blood Pressure 108/72 03/21/2025 1:05 PM CDT Pulse 88 03/21/2025 1:05 PM CDT Temperature 36.6 C (97.9 F) 03/21/2025 1:05 PM CDT Respiratory Rate 18 11/14/2024 6:50 PM SWEEP MOLDER Oxygen Saturation 98% 03/21/2025 1:05 PM CDT Inhaled Oxygen Concentration - - Weight 81.1 kg (178 lb 11.2 oz) 03/21/2025 1:05 PM CDT Height 167.6 cm (5' 5.98) 03/21/2025 1:05 PM CD T Body Mass Index 28.86 03/21/2025 1:05 PM CDT Plan of Treatment Not on file Procedures Procedure Name Priority Date/Time Associated Diagnosis Comments HEMOGLOBIN A1C Routine 12/01/2024 11:05 AM SWEEP MOLDER EGFR STAT 11/14/2024 5:07 PM SWEEP MOLDER from Last 3 Months or Most Recently Relevant to Health Maintenance Results * (ABNORMAL) Hemoglobin A1c (12/01/2024 11:05 AM SWEEP MOLDER) [facility] Hgb A1C 13.1(H) 4.0 - 5.6 % Comment:Testing performed by : [address] [address] Estimated Average Glucose 329 mg/dL [facility] ERICKSON Comment: The ADA recommends reporting an estimated Average Glucose (eAG) with all Hemoglobin A1c results using the equation derived from a study of 507 normal and diabetic adults. Minority populations were underrepresented and children were not included. (Diabetes Care 31:7568-2628, 2008). The eAG is not equivalent to a fasting glucose. Testing performed by: [address] [address] Blood 12/01/2024 11:0 5 AM SWEEP MOLDER 12/01/2024 11:32 AM SWEEP MOLDER us Irma Louis NP LAB BLOOD ORDERABLES Final R esult [facility] ERICKSON [address] [facility] Department [place] [address] * eGFR (11/14/2024 5:07 PM SWEEP MOLDER) eGFR 88 >=60 mL/min/1. 73 m2 Comment: [...] last reviewed 2021. Blood 11/14/2024 5:07 PM SWEEP MOLDER 11/14/2024 5:14 PM SWEEP MOLDER us Ofelia Grimes NP LAB BLOOD ORDERABLES Final Resul t [facility] [address] [facility] Department [place] [address] from Last 3 Months or Most Recently Relevant to Health Maintenance Insurance [facility] ANTHEM ACCESS CHOICE ANTHEM ACCESS [facility] Care Teams Associate Sales Manager Relationship Specialty Start Date End Date Irma Louis NP [address] [place] [address] PCP - General Family Medicine 11/14/24
[2025-04-18 12:37] LABS: Basophils Absolute Auto 0.1 K/mm3 (0.0-0.1); Basophils Percent Auto 0.7 % (0.2-1.2); Eosinophils Absolute Auto 0.4 K/mm3 (0-0.3); Eosinophils Percent Auto 3.3 % (0-4.4); Hematocrit 47.2 % (42.0-52.0); Immature Granulocyte Absolute 0.04 K/mm3 (0.00-0.031); Immature Granulocyte Percent A 0.4 % (0-0.5); Lymphocytes Absolute Auto 6.23 K/mm3 (0.9-3.2); Lymphocytes Percent Auto 57.3 % (18.3-44.2); Mean Corpuscular HGB Conc 33.9 g/dl (32-36); Mean Corpuscular Hemoglobin 30.3 pg (26-34); Mean Corpuscular Volume 89.4 fl (80-100); Mean Platelet Volume 9.9 fl (7.4-10.4); Monocytes Absolute Auto 0.8 K/mm3 (0.1-0.6); Monocytes Percent Auto 7.1 % (2.6-8.5); Neutrophils Absolute Auto 3.4 K/mm3 (1.3-6.7); Neutrophils Percent Auto 31.2 % (45.5-73.1); Platelet Count Result 209 k/mm3 (150-375); Red Blood Count 5.28 M/mm3 (4.6-6.20); Red Cell Distribution Width 12.2 % (11.5-14.5); White Blood Count 10.9 K/mm3 (4.5-10.0)
[2025-04-18 12:48] LABS: Alanine Aminotransferase 154 U/L (6-50); Albumin Level 4.9 g/dL (3.5-5.1); Alkaline Phosphatase 74 U/L (38-126); Anion Gap 13 mmol/L (4-12); Aspartate Amino Transferase 109 U/L (17-59); Bilirubin,Total 0.8 mg/dL (0.2-1.3); Blood Urea Nitrogen 20 mg/dL (9-20); Calcium 9.9 mg/dL (8.4-10.2); Carbon Dioxide 26 mmol/L (22-30); Chloride 103 mmol/L (98-107); Estimated Glomerular Filt Rate > 60; Glucose 77 mg/dL (65-110); Potassium 3.4 mmol/L (3.4-5.0); Sodium 142 mmol/L (137-145)
[2025-04-18 13:19] LABS: Hepatitis B Surface Antigen Negative (Negative)
[2025-04-18 13:29] LABS: HIV 1/2 Ab P24 Ag Result Negative (Negative)
[2025-04-22 21:08] LABS: HCV Genotype, LiPA 1a
[2025-04-26 20:24] LABS: ALT 109 U/L (9-46); Alpha-2-Macroglobulin 455 mg/dL (106-279); Apolipoprotein A1 188 mg/dL (94-176); Fibrosis Score 0.59; Fibrosis Stage F3; GGT 184 U/L (3-95); Haptoglobin 186 mg/dL (43-212); Necroinflammat Act Grade A3; Total Bilirubin 0.6 mg/dL (0.2-1.2)
== END 2025-04-18 11:12 | disposition home or self-care (01) ==
PROVIDERS: PCP Nurse Practitioner Family
DX: B18.2 Chronic viral hepatitis C (principal)
CPT/HCPCS: 36415; 80053; 81596; 85025; 86703; 87340; 87522; 87902; 99212; G0432; G0463

== ENCOUNTER 2025-05-10 16:22 | Emergency (ER) | payer BC, SELFPAY ==
[2025-05-10 16:35] VITALS: BP 115/62; PULSE 82; RESP 18; TEMP 36.1; O2SAT 100
[2025-05-10 18:02] LABS: Glucose Point of Care 113 mg/dl (65-105)
--- NOTE | 2025-05-10 18:40 | ED.RECABL ---
HPI - Recheck/Abnormal Lab/Rx General Chief Complaint: Recheck/Abnormal Lab/Rx Stated Complaint: Elevated blood sugar Time Seen by Provider: 05/10/25 17:46 History of Present Illness HPI narrative: Pt says he is supposed to have surgery at end of month but needs his Hb a1c checked. Pt tried to call his PCP but the order was not sent. Pt last a1c was 13 in November. Pt says his sugars have been well controlled. Related Data Allergies Allergy/AdvReac Type Severity Reaction Status Date / Time No Known Allergies Allergy Verified 05/10/25 17:29 Review of Systems Review of Systems: All systems reviewed & are unremarkable except as noted in HPI and below PMFSH Past Medical History Medical History Hypertension Social History Social History Smoking status: Never smoker Substance use: former Substance use type: former substance user Exam Const: General: healthy appearing and no acute distress Nutritional Appearance: well nourished Orientation/consciousness: patient oriented x3 Limitations: no limitations HENMT: Head: normal to inspection Neck: Neck: normal visual inspection and no lymphadenopathy Resp: Effort & Inspection: normal respiratory effort Auscultation: clear to auscultation bilaterally Cardio: Rate: regular rate Rhythm: regular rhythm Skin: General skin exam: normal color Rashes: no rashes Wounds: no wounds Neuro: General: patient oriented x3, moves all extremities, no meningeal signs, no focal motor deficits and CN's II-XI intact bilaterally Cranial nerves: Yes Nystagmus not present Speech: normal speech Gait exam (Neuro): Normal gait present Extrem: General: normal to inspection and no clubbing, cyanosis or edema Psych: Mental Status: mental status grossly normal Affect: normal affect Attitude: cooperative Course Vital Signs Vital signs: Vital Signs Temperature 97.0 F L 05/10/25 16:35 Pulse Rate 82 05/10/25 16:35 Respiratory Rate 18 05/10/25 16:35 Blood Pressure 115/62 05/10/25 16:35 Pulse Oximetry 100 05/10/25 16:35 Temperature 97.0 F L 05/10/25 16:35 Pulse Rate 82 05/10/25 16:35 Respiratory Rate 18 05/10/25 16:35 Blood Pressure 115/62 05/10/25 16:35 Pulse Oximetry 100 05/10/25 16:35 MDM - Recheck/Abnormal Lab/Rx MDM Narrative Medical decision making narrative: Pt here requesting a1c. accucheck 120's. will check a1c Lab Data Labs: Lab Results 05/10/25 05/10/25 Range/Units 17:59 18:21 POC Capillary Glucose 113 H (65-105) mg/dl Hemoglobin A1c 5.9 H (<5.7) % Discharge Plan Discharge Clinical Impression: Diabetes Patient Disposition: Home Condition: Stable Instructions: Antibiotic Form, Diabetes and Nutrition (ED) Additional Instructions: A1c level is 5.9 Patient Language: Finnish Prescriptions: No Action amlodipine 5 mg tablet 5 mg PO DAILY 30 Days Qty: 30 0RF losartan 100 mg tablet 100 mg PO DAILY 30 Days Qty: 30 0RF ibuprofen 800 mg tablet 800 mg PO TID PRN (Reason: pain) Qty: 30 0RF amoxicillin 875 mg tablet 875 mg PO Q12H 10 Days Qty: 20 0RF Follow-up/Referrals: Heriberto,Irma Iyer NP [Primary Care Provider] - Stand Alone Forms: Work/School Release IP
[2025-05-10 18:43] LABS: Hemoglobin A1C 5.9 % (<5.7)
== END 2025-05-10 19:05 | disposition home or self-care (01) ==
LOC: ANHED 18:52
PROVIDERS: Emergency Provider Emergency Medicine; PCP Nurse Practitioner Family
DX: E11.8 Type 2 diabetes mellitus with unspecified complications (principal); I10 Essential (primary) hypertension; Z79.899 Other long term (current) drug therapy
CPT/HCPCS: 36415; 82948; 83036; 99283